=== PATIENT | male | born 1960 | race American Indian/Alaskan Native ===

== ENCOUNTER 2018-12-01 08:09 | Inpatient (IN) | payer OTHER ==
[2018-12-01 09:42] LABS: Basophils # (Auto) 0.1 K/mm3 (0.0-0.1); Basophils % (Auto) 1.4 % (0.0-1.8); Eosinophils # (Auto) 0.1 K/mm3 (0.0-0.4); Eosinophils % (Auto) 1.9 % (0.0-4.3); Hematocrit 36.2 % (35.5-45.6); Hemoglobin 12.2 gm/dl (11.8-15.2); Lymphocytes # (Auto) 1.4 K/mm3 (1.2-5.4); Lymphocytes % (Auto) 28.9 % (13.4-35.0); Mean Corpuscular HGB Conc 34 % (32-34); Mean Corpuscular Volume 88 fl (84-94); Monocytes # (Auto) 0.3 K/mm3 (0.0-0.8); Platelet Count 291 K/mm3 (140-440); Red Blood Count 4.13 M/mm3 (3.65-5.03); Red Cell Distribution Width 15.9 % (13.2-15.2)
[2018-12-01 09:56] LABS: BUN/Creatinine Ratio 19; Blood Urea Nitrogen 23 mg/dL (9-20); Calcium 8.7 mg/dL (8.4-10.2); Hemolysis Index 2
[2018-12-01 10:14] LABS: INR 0.88 (0.87-1.13)
[2018-12-01] MEDS ORDERED: SUBLIMAZE ONE (10:21)
[2018-12-01] MEDS ORDERED: HEPARIN/NS 5000 UNIT/500ML(CATH LAB) 1,500 ML IR ONE (10:22)
[2018-12-01] MEDS ORDERED: ANCEF/STERILE WATER 2 GM/20 ML 2 GM/20 ML SYRINGE IV ONE (10:22)
[2018-12-01] MEDS: NACL 0.9% 1000 ML 1,000 ML IV SCH ×3 (11:05→21:54)
--- NOTE | 2018-12-01 11:06 | Short Stay Summary ---
Short Stay Documentation Date of service: 12/01/18 Narrative H&P: 58 year old male with CLI of the left lower extremity - History Principal diagnosis: Atherosclerosis with gangrene/ulceration H&P: obtained from office - Allergies and Medications Current Medications: Allergies No Known Allergies Allergy (Unverified 12/01/18 08:10) Active Medications Sodium Chloride (Nacl 0.9% 1000 Ml) 1,000 mls @ 42 mls/hr IV DIRECT ENRICO - Physical exam General appearance: no acute distress Lungs: Normal air movement Heart: Regular rate Gastrointestinal: normal Extremities: normal temperature, normal color - Brief post op/procedure progress note Date of procedure: 12/01/18 Pre-op diagnosis: CLI LLE Post-op diagnosis: other (CLI LLE, HIT) Procedure: 1. Ultrasound guided access of the right common femoral artery 2. Angiography of the right lower extremity 3. Selection of the abdominal aorta with aortography 4. Selection of the left external iliac artery, common femoral artery, superficial femoral artery and popliteal artery with angiography 5. Selection of the left anterior tibial artery 6. Ultrasound guided access of the left dorsalis pedis 7. Angioplasty of the left anterior tibial artery with a 2 mm x 220 angioplasty balloon ; 2.5 mm x 120 mm Chocolate balloon ; 3 mm x 120 mm Chocolate balloon ; 2.5 mm x 220 angioplasty balloon 8. Stenting of the left proximal anterior tibial artery with a 2.75 mm x 38 mm RESOLUTE DUS with angioplasty of the left anterior tibial artery with a 2.5 mm x 220 mm angioplasty balloon 9. Placement of a 3 mm spider EPD in the left peroneal artery 10. Atherectomy of the left peroneal artery with a Hawkone S device with angioplasty with a 3 mm x 120 mm Chocolate balloon 11. Angioplasty of the left anterior tibial artery stent with a Expedia 3 mm x 15 mm coronary balloon and 2.5 mm x 220 mm angioplasty balloon 12. Infusion of 6 mg of tPA in the left peroneal artery and anterior tibial a rtery 13. Placement of a 50 cm x 135 cm EKOS thrombolytic device in the left anterior tibial artery Anesthesia: local (w/ conscious sedation) Surgeon: MANUEL KARIMI Estimated blood loss: minimal Condition: stable - Hospital course Hospital course: Admitted to ICU for thrombolytic therapy due to presumed HIT. Thrombolysis was performed overnight with clearance of the thrombus with repeat angioplasty. The patient was then discharged the next day on Eliquis and plavix. Patient will followup in 2 weeks. 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
[2018-12-01] MEDS: XYLOCAINE 2% INFILTRATI ONE ×2 (11:09→11:10)
[2018-12-01] MEDS: VERSED ONE ×11 (11:09→14:01)
[2018-12-01] MEDS: SUBLIMAZE ONE ×10 (11:11→14:01)
[2018-12-01] MEDS: HEPARIN 10,000 UNITS/10 ML ONE ×5 (11:25→14:25)
[2018-12-01] MEDS ORDERED: TRIDIL DRIP 50MG/250ML 0 MG/0 ML BOTTLE ONE (11:32)
[2018-12-01] MEDS ORDERED: TRIDIL DRIP 50MG/250ML 50 MG/250 ML BOTTLE ONE (11:33)
[2018-12-01] MEDS ORDERED: NACL 0.9% 1000 ML 1,000 ML ONE (11:34)
[2018-12-01] MEDS ORDERED: CALAN ONE ×2 (11:34→12:04)
[2018-12-01] MEDS ORDERED: NITROGLYCERIN SYRINGE 6 ML ONE (12:04)
[2018-12-01] MEDS ORDERED: NITROGLYCERIN SYRINGE 3 ML ONE ×3 (12:57→14:33)
[2018-12-01] MEDS ORDERED: NACL 0.9% 100 ML ONE ×2 (15:08→16:19)
[2018-12-01] MEDS ORDERED: NACL 0.9% 500 ML 500 ML ONE (15:08)
[2018-12-01] MEDS ORDERED: CATHFLO ONE ×3 (15:13→15:30)
[2018-12-01] MEDS ORDERED: WATER FOR INJ Sterile (PF) 20 ML ONE (15:13)
[2018-12-01] MEDS: ANGIOMAX IV ONE ×2 (15:15→15:23)
[2018-12-01] MEDS ORDERED: MORPHINE IV PRN ×2 (15:16)
[2018-12-01] MEDS ORDERED: NORCO 5/325 PO PRN (15:16)
[2018-12-01] MEDS ORDERED: ZOFRAN IV PRN (15:16)
[2018-12-01] MEDS ORDERED: D50W (25GM) Syringe IV PRN (15:33)
[2018-12-01] MEDS ORDERED: NACL 0.9% 1000 ML 1,000 ML EKOSCLUMEN SCH (16:00)
[2018-12-01] MEDS ORDERED: NACL 0.9% 1000 ML 1,000 ML IV SCH ×2 (16:00)
[2018-12-01] MEDS ORDERED: NACL 0.9% IV SCH (16:00)
[2018-12-01] MEDS ORDERED: HEPARIN/ 0.45% NACL-25,000 UNIT/500 ML 25,000 UNIT/500 ML BAG SHEATH SCH (16:00)
[2018-12-01] MEDS ORDERED: NACL 0.9% 1000 ML 1,000 ML SHEATH SCH (16:00)
[2018-12-01] MEDS ORDERED: ANGIOMAX IV SCH (16:00)
[2018-12-01] MEDS ORDERED: NACL 0.9% 500 ML IR ONE (16:03)
[2018-12-01] MEDS ORDERED: ANGIOMAX IV ONE (16:19)
--- NOTE | 2018-12-01 16:23 | Operative Report ---
Operative Report Operative Report: EXAM: 1. Ultrasound guided access of the right common femoral artery 2. Angiography of the right lower extremity 3. Selection of the abdominal aorta with aortography 4. Selection of the left external iliac artery, common femoral artery, superficial femoral artery and popliteal artery with angiography 5. Selection of the left anterior tibial artery 6. Ultrasound guided access of the left dorsalis pedis 7. Angioplasty of the left anterior tibial artery with a 2 mm x 220 angioplasty balloon ; 2.5 mm x 120 mm Chocolate balloon ; 3 mm x 120 mm Chocolate balloon ; 2.5 mm x 220 angioplasty balloon 8. Stenting of the left proximal anterior tibial artery with a 2.75 mm x 38 mm RESOLUTE DUS with angioplasty of the left anterior tibial artery with a 2.5 mm x 220 mm angioplasty balloon 9. Placement of a 3 mm spider EPD in the left peroneal artery 10. Atherectomy of the left peroneal artery with a [employer]kone S device with angioplasty with a 3 mm x 120 mm Chocolate balloon 11. Angioplasty of the left anterior tibial artery stent with a Expedia 3 mm x 15 mm coronary balloon and 2.5 mm x 220 mm angioplasty balloon 12. Infusion of 6 mg of tPA in the left peroneal artery and anterior tibial artery 13. Placement of a 50 cm x 135 cm EKOS thrombolytic device in the left anterior tibial artery DATE: 12/01/18 BUFFING AND SUEDING MACHINE OPERATOR: MANUEL KARIMI MD INDICATION: Critical limb ischemia of the left lower extremity with nonhealing ulceration of the foot after open TMA. MEDICATIONS: Please see nursing report for full details. CONTRAST: Please see rn lab report for full details. PROCEDURE: The risks, benefits, and alternatives were discussed with the patient; written informed consent was obtained. The patient's groins were prepped and draped in a sterile fashion. The patient's left foot was prepped and draped in sterile fashion. Under direct ultrasound guidance, the right common femoral artery was evaluated, noted to be patent, and accessed with a 21-gauge micropuncture needle. 0.018 inch wire was passed into the aorta. Needle was exchanged for transitional dilator. Wire was exchanged for 0.035 inch wire. Transitional dilator was exchanged for a 5 Martiniquais sheath. Digital subtraction angiography was performed demonstrating an appropriate puncture, above the bifurcation and below the inferior epigastric artery. The right common femoral artery, superficial femoral artery, proximal profunda femoral artery, and external iliac artery was patent. The abdominal aorta was selected and digital subtraction angiography demonstrated patency of the infrarenal abdominal aorta, bilateral common iliac arteries, and bilateral external iliac arteries. Left external iliac artery was selected and digital subtraction angiography was performed demonstrating patency of the left common femoral artery, profunda femoral artery, and superficial femoral artery. 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 The superficial femoral artery was selected and digital subtraction angiography was performed demonstrating patency throughout the superficial femoral artery. Popliteal artery was selected and digital subtraction angiography was performed showing patency of the proximal and mid popliteal artery. The below the knee popliteal artery had diffuse 40-50% narrowing. Digital subtraction angiography at this level demonstrated that after 5 cm the anterior tibial artery was occluded. It did not reconstitute until the lower calf at which point it was heavily diseased. The tibioperoneal trunk was 30% narrowed. The peroneal artery was the only runoff to the foot and had a 99% narrowing at its proximal portion. Peroneal runoff to the foot provided throw through posterior and anterior communicating arteries, which despite being the only runoff to the foot were still small in size. The posterior tibial artery was occluded after the first few centimeters and did not reconstitute until the ankle at which point there were half millimeter sized vessels. The patient was heparinized. Sheath was exchanged for 6 Martiniquais 90 cm [place] destination position of the left popliteal artery. Left anterior tibial artery was selected and using a variety of catheters and wires, I attempted to cross the occlusion, but entered the subintimal space and was not able to return back into the true lumen. I then decided to perform the Safari technique in order to reconstruct this vessel. Ultrasound was used to identify the left dorsalis pedis artery. The left dorsalis pedis artery is patent. Under direct ultrasound guidance, left dorsalis pedis artery was accessed with a 21-gauge micropuncture needle. 0.018 inch wire was passed into the dorsalis pedis. The inner portion of a transitional dilator was then advanced over the wire. Radial cocktail was administered. Nitroglycerin was administered. Using both the antegrade and retrograde access, I attempted to cross the occlusion which was ultimately successful. The wire was then snared with a 4 Martiniquais goosenecks snare. 2 mm angioplasty balloon was advanced over the wire and used to perform angioplasty to create a lumen. The pedal sheath was then removed and the 2 mm angioplasty balloon was used to balloon the access site. Digital subtraction angiography was performed, and although there is improved flow into the foot, there is still significant irregularity in the proximal portion of the vessel. I suspect there is a dissection at the reentry site in the proximal anterior tibial artery. At first I used a 2.5 mm Chocolate balloon and a 3 mm Chocolate balloon to perform angioplasty of the anterior tibial artery to reconstruct the vessel, but the proximal limitation of flow persisted. I decided to stent the dissection flap with a 2.75 RESOLUTE DUS. After this was performed, 2.5 mm angioplasty balloon was used to perform angioplasty throughout the length of the anterior tibial artery. After this insufflation, there was now excellent flow from the anterior tibial artery. The flow was quite robust. I then decided to treat the peroneal artery. 3 mm spider EPD was deployed in the peroneal artery and atherectomy was performed of the peroneal ostium with a [employer]koL[employer] Mobile S device. This was then post dilated with a 3 mm x 120 mm Chocolate balloon. Digital subtraction angiography was performed demonstrating no residual narrowing of the proximal peroneal artery, but recurrent occlusion of the anterior tibial artery despite previous excellent flow. I then retrieve the embolic protection device and selected the anterior tibial artery. Unfortunately, the catheter slightly kinked the stent in the left anterior tibial artery stent. I had to exchange for a coronary balloon to perform angioplasty of the stent to re-approximate it and then exchanged the balloon for a longer angioplasty balloon. I performed angioplasty of the anterior tibial artery again with a 2.5 mm angioplasty balloon and after this was performed there was now thrombus in the peroneal artery and the anterior tibial artery. Given the intermittent lack of flow in the anterior tibial artery throughout the case, and now thrombus in the peroneal artery and anterior tibial artery I was concerned about heparin-induced thrombocytopenia and hypercoagulable state. I injected 6 mg of tPA in the peroneal artery and anterior tibial artery. I then exchanged by sheath for a 6 Martiniquais 65 cm [place] destination and placed a thrombolytic catheter in the left anterior tibial artery. The site was secured and afterwards, I discussed the situation with the family who understood. Patient was then sent to the ICU for overnight thrombolysis. FINDINGS: Please see procedure note above. IMPRESSION: 1. Successful atherectomy and angioplasty of the left proximal peroneal artery. 2. Successful angioplasty of the left anterior tibial artery was Safari technique. 3. Thrombus of the vessels requiring probable lysis due to concern about heparin-induced thrombocytopenia/hypercoagulable state.
--- NOTE | 2018-12-01 16:30 | Progress Note ---
Assessment and Plan 58 year old male with DM and CLI of the left lower extremity with single vessel diseases runoff with 95% narrowing who is status post revascularization of the left lower extremity with good angiographic results which then became occluded d uring procedure concerning for HIT. Procedure was changed to tPA thrombolysis and patient will be admitted with plan to bring downstairs tomorrow. Discussed extensively with family. Subjective Date of service: 12/01/18 Principal diagnosis: Atherosclerosis with gangrene/ulceration Interval history: 58 year old male with critical limb ischemia of the left lower extremity s/p debridement with nonpalpable pulses and large wound Objective - Constitutional Vitals: Vital Signs - 12hr 12/01/18 09:09 Temperature 98.6 F Pulse Rate 72 Respiratory 16 Rate Blood Pressure 177/82 [Left] O2 Sat by Pulse 95 Oximetry General appearance: Present: no acute distress - EENT Eyes: EOM intact ENT: hearing intact - Respiratory Respiratory effort: normal Extremities: normal temperature, normal color, abnormal (large open ulceration of the left forefoot) - Gastrointestinal General gastrointestinal: Present: soft - Psychiatric Psychiatric: cooperative - Labs CBC & Chem 7: 12/01/18 09:25 12/01/18 09:25 Labs: Abnormal lab results 12/01/18 12/01/18 Range/Units 09:25 09:25 RDW 15.9 H (13.2-15.2) % BUN 23 H (9-20) mg/dL Glucose 159 H (75-100) mg/dL Medications & Allergies - Medications Allergies/Adverse Reactions: Allergies No Known Allergies Allergy (Unverified 12/01/18 08:10) Home Medications: Home Medications Medication Instructions Recorded Confirmed Last Taken Type Insulin Aspart [NovoLOG Flexpen] 100 unit SUB-Q TID 12/01/18 12/01/18 11/30/18 History amLODIPine [Norvasc] 10 mg PO DAILY 12/01/18 12/01/18 12/01/18 History 1 tab hydrALAZINE [Apresoline] 25 mg PO DAILY 12/01/18 12/01/18 12/01/18 History 1 tab Active Medications: Generic Name Dose Route Start Last Admin Trade Name Freq PRN Reason Stop Dose Admin Acetaminophen/Hydrocodone Bitart 2 each 12/01/18 15:16 [place] 5/325 PO Q6H PRN Pain, Moderate (4-6) Amlodipine Besylate 10 mg 12/02/18 10:00 Norvasc PO DAILY [facility] Dextrose 50 ml 12/01/18 15:33 D50w (25gm) Syringe IV PRN PRN Hypoglycemia Hydralazine HCl 25 mg 12/02/18 10:00 Apresoline PO DAILY [facility] Sodium Chloride 1,000 mls @ 42 mls/hr 12/01/18 09:00 12/01/18 11:05 Nacl 0.9% 1000 Ml IV 200 mls DIRECT [facility] Administration Sodium Chloride 1,000 mls @ 30 mls/hr 12/01/18 16:00 Nacl 0.9% 1000 Ml IV DIRECT [facility] Alteplase, Recombinant 20 mg/ 500 mls @ 25 mls/hr 12/01/18 16:00 Sodium Chloride EKOSDLUMEN DIRECT [facility] Sodium Chloride 1,000 mls @ 30 mls/hr 12/01/18 16:00 Nacl 0.9% 1000 Ml IV DIRECT [facility] Sodium Chloride 1,000 mls @ 35 mls/hr 12/01/18 16:00 Nacl 0.9% 1000 Ml EKOSCLUMEN DIRECT [facility] Bivalirudin 250 mg/ Sodium 500 mls @ 77.111 mls/hr 12/01/18 16:00 Chloride IV DIRECT E[facility] 0.25 MG/KG/HR Insulin Human Lispro 0 unit 12/01/18 16:30 Humalog SUB-Q ACHS [facility] Protocol Miscellaneous Medication 100 unit 12/01/18 20:00 Insulin Aspart [Novolog Flexpen] SUB-Q TID [facility] Morphine Sulfate 2 mg 12/01/18 15:16 Morphine IV Q4H PRN Pain, Moderate (4-6) Morphine Sulfate 4 mg 12/01/18 15:16 Morphine IV Q4H PRN Pain , Severe (7-10) Ondansetron HCl 4 mg 12/01/18 15:16 Zofran IV Q8H PRN Nausea And Vomiting
[2018-12-01] MEDS: CATHFLO 20 MG in NACL 0.9% 500 ML 500 ML EKOSDLUMEN SCH ×2 (16:57→21:30)
[2018-12-01] MEDS: HumaLOG SUB-Q SCH (18:10)
--- NOTE | 2018-12-01 19:16 | Consultation ---
History of Present Illness Consult date: 12/01/18 Requesting physician: MANUEL KARIMI Reason for consult: other (Acute Limb Ischemia on EKOS; Possible HIT) History of present illness: PULMONARY/CCM CONSULT NOTE (full dictation # [id number]) Please see dictated notes for full details Medications and Allergies Allergies Allergy/AdvReac Type Severity Reaction Status Date / Time heparin AdvReac Unknown Verified 12/02/18 07:47 Home Medications Medication Instructions Recorded Confirmed Last Taken Type Insulin Aspart [NovoLOG Flexpen] 100 unit SUB-Q TID 12/01/18 12/01/18 11/30/18 History amLODIPine [Norvasc] 10 mg PO DAILY 12/01/18 12/01/18 12/01/18 History 1 tab hydrALAZINE [Apresoline] 25 mg PO DAILY 12/01/18 12/01/18 12/01/18 History 1 tab Active Meds: Active Medications Acetaminophen/Hydrocodone Bitart ([place] 5/325) 2 each PO Q6H PRN PRN Reason: Pain, Moderate (4-6) Amlodipine Besylate (Norvasc) 10 mg PO DAILY [facility] Dextrose (D50w (25gm) Syringe) 50 ml IV PRN PRN PRN Reason: Hypoglycemia Hydralazine HCl (Apresoline) 25 mg PO DAILY [facility] Sodium Chloride (Nacl 0.9% 1000 Ml) 1,000 mls @ 200 mls/hr IV DIRECT ENRICO Last Admin: 12/01/18 16:52 Dose: 42 mls/hr Documented by: Sodium Chloride (Nacl 0.9% 1000 Ml) 1,000 mls @ 30 mls/hr IV DIRECT ENRICO Alteplase, Recombinant 20 mg/ (Sodium Chloride) 500 mls @ 25 mls/hr EKOSDLUMEN DIRECT ENRICO Last Admin: 12/01/18 16:57 Dose: 0 mls Documented by: Sodium Chloride (Nacl 0.9% 1000 Ml) 1,000 mls @ 30 mls/hr IV DIRECT ENRICO Last Admin: 12/01/18 16:57 Dose: 0 mls Documented by: Sodium Chloride (Nacl 0.9% 1000 Ml) 1,000 mls @ 35 mls/hr EKOSCLUMEN DIRECT [facility] Bivalirudin 250 mg/ Sodium (Chloride) 500 mls @ 77.111 mls/hr IV DIRECT ENRICO Last Admin: 12/01/18 16:57 Dose: 180 mls Documented by: Insulin Human Lispro (Humalog) 0 unit SUB-Q ACHS [facility]; Protocol Last Admin: 12/01/18 18:10 Dose: 2 unit Documented by: Insulin Human Lispro (Humalog) 10 unit SUB-Q AC [facility] Morphine Sulfate (Morphine) 2 mg IV Q4H PRN PRN Reason: Pain, Moderate (4-6) Morphine Sulfate (Morphine) 4 mg IV Q4H PRN PRN Reason: Pain , Severe (7-10) Ondansetron HCl (Zofran) 4 mg IV Q8H PRN PRN Reason: Nausea And Vomiting Physical Examination Vital signs: Vital Signs Temp Pulse Resp BP Pulse Ox 98.6 F 72 16 177/82 95 12/01/18 09:09 12/01/18 09:09 12/01/18 09:09 12/01/18 09:09 12/01/18 09:09 Results - Laboratory Findings CBC and BMP: 12/02/18 09:28 12/02/18 04:01 PT/INR, D-dimer PT 12.5 Sec. (12.2-14.9) 12/01/18 09:25 INR 0.88 (0.87-1.13) 12/01/18 09:25 Abnormal lab findings: Abnormal Labs 12/01/18 12/01/18 09:25 09:25 RDW 15.9 H BUN 23 H Glucose 159 H
[2018-12-01 19:46] LABS: Basophils # (Auto) 0.1 K/mm3 (0.0-0.1); Basophils % (Auto) 0.9 % (0.0-1.8); Eosinophils % (Auto) 0.1 % (0.0-4.3); Hematocrit 33.8 % (35.5-45.6); Hemoglobin 11.4 gm/dl (11.8-15.2); Lymphocytes # (Auto) 0.7 K/mm3 (1.2-5.4); Lymphocytes % (Auto) 10.8 % (13.4-35.0); Mean Corpuscular HGB Conc 34 % (32-34); Mean Corpuscular Volume 88 fl (84-94); Monocytes # (Auto) 0.2 K/mm3 (0.0-0.8); Monocytes % (Auto) 2.6 % (0.0-7.3); Platelet Count 269 K/mm3 (140-440); Red Blood Count 3.84 M/mm3 (3.65-5.03); Red Cell Distribution Width 15.6 % (13.2-15.2)
[2018-12-01 19:56] LABS: INR 1.19 (0.87-1.13)
[2018-12-01 19:57] LABS: Fibrinogen 380 mg/dl (211-480); Partial Thromboplastin Time 46.6 Sec. (24.2-36.6)
[2018-12-01 20:00] LABS: BUN/Creatinine Ratio 20; Blood Urea Nitrogen 18 mg/dL (9-20); Calcium 8.5 mg/dL (8.4-10.2); Hemolysis Index 4
[2018-12-01] MEDS ORDERED: INSULIN ASPART 100 UNIT SUB-Q SCH (20:00)
[2018-12-02] MEDS: HumaLOG SUB-Q SCH ×9 (00:54→22:05)
[2018-12-02] MEDS: NACL 0.9% 1000 ML 1,000 ML IV SCH (02:45)
[2018-12-02 02:54] LABS: Basophils # (Auto) 0.1 K/mm3 (0.0-0.1); Basophils % (Auto) 0.9 % (0.0-1.8); Eosinophils % (Auto) 0.8 % (0.0-4.3); Hematocrit 32.5 % (35.5-45.6); Hemoglobin 10.8 gm/dl (11.8-15.2); Lymphocytes # (Auto) 1.3 K/mm3 (1.2-5.4); Lymphocytes % (Auto) 19.4 % (13.4-35.0); Mean Corpuscular HGB Conc 33 % (32-34); Mean Corpuscular Volume 88 fl (84-94); Monocytes # (Auto) 0.4 K/mm3 (0.0-0.8); Monocytes % (Auto) 6.8 % (0.0-7.3); Platelet Count 268 K/mm3 (140-440); Red Blood Count 3.67 M/mm3 (3.65-5.03); Red Cell Distribution Width 15.7 % (13.2-15.2)
[2018-12-02 03:10] LABS: Fibrinogen 364 mg/dl (211-480)
[2018-12-02 05:05] LABS: BUN/Creatinine Ratio 22; Blood Urea Nitrogen 20 mg/dL (9-20); Calcium 8.2 mg/dL (8.4-10.2); Hemolysis Index 7
[2018-12-02] MEDS ORDERED: VERSED ONE (06:30)
[2018-12-02] MEDS ORDERED: SUBLIMAZE ONE (06:30)
[2018-12-02] MEDS ORDERED: XYLOCAINE 2% INFILTRATI ONE (06:35)
[2018-12-02] MEDS ORDERED: NACL 0.9% 1000 ML 1,000 ML ONE (06:35)
[2018-12-02] MEDS ORDERED: NACL 0.9% 500 ML 1,000 ML ONE (06:35)
[2018-12-02] MEDS ORDERED: ANGIOMAX IV ONE (07:11)
[2018-12-02] MEDS ORDERED: NACL 0.9% 50 ML ONE (07:11)
[2018-12-02] MEDS ORDERED: WATER FOR INJ Sterile (PF) 10 ML ONE (07:11)
[2018-12-02] MEDS ORDERED: ANCEF/STERILE WATER 2 GM/20 ML 2 GM/20 ML SYRINGE IV ONE (07:12)
[2018-12-02] MEDS ORDERED: CATHFLO ONE (07:29)
[2018-12-02] MEDS ORDERED: ALUM-MAG HYDROX-SIMETH 200-200-20MG/5ML ONE (07:45)
[2018-12-02] MEDS ORDERED: PLAVIX ONE (07:45)
[2018-12-02] MEDS ORDERED: ELIQUIS ONE (07:48)
--- NOTE | 2018-12-02 08:01 | Post Operative Note ---
Date of procedure: 12/02/18 Pre-op diagnosis: CLI LLE Post-op diagnosis: same Findings: Thrombus resolved after thrombolytic therapy Procedure: 1. EKOS catheter removal of the left superficial femoral artery 2. Angiography of the left lower extremity 3. Aspiration thrombectomy with 6 Fr EXPORT catheter of the left anterior tibial artery 4. Angioplasty of the left anterior tibial artery with a 2.5 mm x 150 mm angioplasty balloon 5. Selection of the peroneal artery 6. Injection of 2 mg of tPA in the distal left peroneal artery 7. Closure of the right common femoral artery with 6 Fr proglide Anesthesia: local (w/ conscious sedation) Surgeon: MANUEL KARIMI Estimated blood loss: minimal Condition: stable Disposition: ICU
--- NOTE | 2018-12-02 08:13 | Event Note ---
Date: 12/02/18 Thrombolysis was successful. Patient tolerated procedure well. Due to concern about HIT with intraoperative thrombosis in prior procedure started on anticoagulation. Started patient on PLAVIX and ELIQUIS. R/B/A discussed with family. FLAT for 8 hrs. Plan for tentative discharge tomorrow.
--- NOTE | 2018-12-02 08:14 | Operative Report ---
Operative Report Operative Report: EXAM: 1. EKOS catheter removal of the left superficial femoral artery 2. Angiography of the left lower extremity 3. Aspiration thrombectomy with 6 Fr EXPORT catheter of the left anterior tibial artery 4. Angioplasty of the left anterior tibial artery with a 2.5 mm x 150 mm angioplasty balloon 5. Selection of the peroneal artery 6. Injection of 2 mg of tPA in the distal left peroneal artery 7. Closure of the right common femoral artery with 6 Fr proglide DATE: 12/02/18 COMMUNITY SERVICE OFFICER COORDINATOR: MANUEL KARIMI MD INDICATION: Overnight thrombo-lysis for intraprocedural thrombus during critical limb ischemia procedure to salvage the left lower extremity. MEDICATIONS: Please see nursing report for full details. CONTRAST: Please see process laboratory specialist report for full details. PROCEDURE: The risks, benefits, and alternatives were discussed with the patient; written informed consent was obtained. The patient was brought to the angiography suite and his thrombolysis catheter was prepped and draped in a sterile fashion. Fluoroscopy was used to evaluate the positioning of the thrombolysis catheter which was unchanged in the left anterior tibial artery. The wire was removed and digital subtraction angiography was performed through the thrombolysis catheter demonstrating flow to the dorsalis pedis was some irregularity of the distal anterior tibial artery with some 50-90% focal narrowings. Over a 0.014 inch wire, the thrombolysis catheter was retracted and digital subtraction angiography was performed demonstrating patency of the midportion of the vessel with some 30-40% narrowing of the proximal portion of the vessel. The tibioperoneal trunk was patent. The peroneal artery thrombus had completely resolved. There is 0% residual narrowing of the proximal peroneal artery. The mid peroneal artery was patent. The distal peroneal artery was patent except for a focal area which had sluggish flow, possibly due to competing flow. The posterior tibial artery was unchanged and continue to be occluded. Angiomax was initiated at this time. 6 Romanian aspiration thrombectomy catheter is advanced over the wire and used to perform aspiration thrombectomy throughout the anterior tibial artery. AngioJet could not be used to the length limitations. After this was completed, 2.5 mm angioplasty balloon was used to perform angioplasty of the distal anterior tibial artery and the proximal anterior tibial artery. Digital subtraction angiography was performed demonstrating 10-20% residual narrowing at these area s. There was prompt flow through the reconstructed anterior tibial artery. Afterwards, the peroneal artery was selected and the distal most portion of the peroneal artery with the sluggish flow was selected and digital subtraction angiography was performed demonstrating no clear cause for the sluggish flow which was likely due to competing flow. Incase there was microthrombus, 2 mg of TPA was injected into this vessel. At this point, all wires, catheters, and sheaths were retracted to the right external iliac artery and the site was closed with a 6 Romanian Pro-glide. The patient was initiated on Plavix and Eliquis. Pressure dressing applied to the groin. No immediate postprocedure complication. FINDINGS: Please see procedure note above. IMPRESSION: 1. Successful angioplasty of the left anterior tibial artery. 2. Successful selection of the left anterior tibial artery and peroneal artery. 3. Successful aspiration thrombectomy of the left anterior tibial artery. 4. Successful thrombolytic catheter removal.
[2018-12-02] MEDS: NORVASC PO SCH (09:09)
[2018-12-02] MEDS: APRESOLINE PO SCH (09:09)
[2018-12-02 09:54] LABS: Basophils # (Auto) 0.1 K/mm3 (0.0-0.1); Basophils % (Auto) 0.9 % (0.0-1.8); Eosinophils % (Auto) 0.3 % (0.0-4.3); Hematocrit 35.4 % (35.5-45.6); Hemoglobin 11.8 gm/dl (11.8-15.2); Lymphocytes # (Auto) 0.8 K/mm3 (1.2-5.4); Lymphocytes % (Auto) 13.1 % (13.4-35.0); Mean Corpuscular HGB Conc 33 % (32-34); Mean Corpuscular Volume 89 fl (84-94); Monocytes # (Auto) 0.3 K/mm3 (0.0-0.8); Monocytes % (Auto) 4.8 % (0.0-7.3); Platelet Count 258 K/mm3 (140-440); Red Blood Count 3.99 M/mm3 (3.65-5.03); Red Cell Distribution Width 15.9 % (13.2-15.2)
--- NOTE | 2018-12-02 10:35 | Progress Note ---
<LIZETTE KEENE A - Last Filed: 12/05/18 13:22> Objective CBC and BMP: 12/02/18 09:28 12/03/18 05:29 ABG, PT/INR, D-dimer: PT/INR, D-dimer PT 15.9 Sec. (12.2-14.9) H 12/01/18 19:18 INR 1.19 (0.87-1.13) H 12/01/18 19:18 Abnormal lab findings: Abnormal Labs 12/01/18 12/01/18 12/01/18 09:25 09:25 17:02 Hgb Hct RDW 15.9 H Lymph % (Auto) Lymph # Seg Neutrophils % PT INR APTT Heparin Anti-Xa Level Carbon Dioxide BUN 23 H Glucose 159 H POC Glucose 168 H Calcium 12/01/18 12/01/18 12/01/18 19:18 19:18 19:18 Hgb Hct RDW Lymph % (Auto) Lymph # Seg Neutrophils % PT 15.9 H INR 1.19 H APTT 46.6 H Heparin Anti-Xa Level < 0.10 L Carbon Dioxide BUN Glucose 146 H POC Glucose Calcium 12/01/18 12/01/18 12/02/18 19:26 22:02 00:51 Hgb 11.4 L Hct 33.8 L RDW 15.6 H Lymph % (Auto) 10.8 L Lymph # 0.7 L Seg Neutrophils % 85.6 H PT INR APTT Heparin Anti-Xa Level Carbon Dioxide BUN Glucose POC Glucose 119 H 132 H Calcium 12/02/18 12/02/18 12/02/18 02:14 02:14 04:01 Hgb 10.8 L Hct 32.5 L RDW 15.7 H Lymph % (Auto) Lymph # Seg Neutrophils % 72.1 H PT INR APTT Heparin Anti-Xa Level < 0.10 L Carbon Dioxide 20 L BUN Glucose 129 H POC Glucose Calcium 8.2 L 12/02/18 12/02/18 12/02/18 09:00 09:28 09:28 Hgb Hct 35.4 L RDW 15.9 H Lymph % (Auto) 13.1 L Lymph # 0.8 L Seg Neutrophils % 80.9 H PT INR APTT Heparin Anti-Xa Level 0.22 L Carbon Dioxide BUN Glucose POC Glucose 174 H Calcium 12/02/18 12/02/18 12/02/18 12:14 19:16 22:00 Hgb Hct RDW Lymph % (Auto) Lymph # Seg Neutrophils % PT INR APTT Heparin Anti-Xa Level Carbon Dioxide BUN Glucose POC Glucose 130 H 153 H 132 H Calcium 12/03/18 12/03/18 12/03/18 05:29 08:39 12:04 Hgb Hct RDW Lymph % (Auto) Lymph # Seg Neutrophils % PT INR APTT Heparin Anti-Xa Level Carbon Dioxide BUN Glucose 156 H POC Glucose 170 H 129 H Calcium <CYNTHIA COLEMANINDYCARLOS Samy - Last Filed: 12/09/18 11:50> Assessment and Plan Severe PVD with acute limb ischemia s/p status post left lower extremity revascularization, EKOS and angioplasty. DM HIT Morbid Obesity, PASHA HTN PUD - continue and complete EkOS treatment per Vascular team - prn H&H - encouraged compliance with BIPAP while asleep at night - Continue supplemental oxygen as needed to keep O2 sat's > 90% - Weight loss and lifestyle modifications counselling - Continue with glycemic control - Encouraged to remain compliant with nocturnal BIPAP/CPAP .... re-evaluate in am & prn Subjective Date of service: 12/02/18 Principal diagnosis: Severe PVD; Acute limb ischemia; DM II; HIT; Morbid Obesity; PASHA Interval history: Patient is seen today for: Severe PVD with acute limb ischemia; s/p status post left lower extremity revascularization, EKOS and angioplasty; DM II; HIT; Morbid Obesity; PASHA Seen and examined at bedside; 24-hour events reviewed; nursing and respiratory care staff consulted; no adverse overnight events reported to me; continues to be non compliant with BIPAP; no gross bleeding; remains on EkOS catheter directed thrombolytic therapy; denies acute chest pains or palpitations Objective Vital Signs - 12hr 12/01/18 12/01/18 12/02/18 23:00 23:25 00:00 Temperature 98.2 F 97.9 F Pulse Rate 82 86 Respiratory 18 18 Rate Blood Pressure 137/64 157/68 O2 Sat by Pulse 98 98 Oximetry 12/02/18 12/02/18 12/02/18 02:00 03:00 03:24 Temperature 97.8 F 98.4 F Pulse Rate Respiratory 16 18 Rate Blood Pressure 153/69 138/55 O2 Sat by Pulse 95 98 Oximetry 12/02/18 12/02/18 12/02/18 04:00 05:00 06:00 Temperature 98.2 F Pulse Rate 88 89 Respiratory 18 18 16 Rate Blood Pressure 142/57 163/58 149/56 O2 Sat by Pulse 98 96 96 Oximetry 12/02/18 09:09 Temperature Pulse Rate 80 Respiratory Rate Blood Pressure 181/55 O2 Sat by Pulse Oximetry Constitutional: appears uncomfortable, other (Morbidly Obese middle aged AAM, normocephalic) Eyes: non-icteric ENT: oropharynx moist, other (Mallampati 4) Neck: supple, no lymphadenopathy, no JVD, other (large neck circumference) Effort: mildly labored Ascultation: Bilateral: clear, diminished breath sounds Percussion: Bilateral: not dull Cardiovascular: regular rate and rhythm Gastrointestinal: normoactive bowel sounds, soft, non-tender, non-distended Neurologic: normal mental status, non-focal exam, pupils equal and round, CN II- XII normal, motor strength normal and Psychiatric: mood appropriate, affect normal CBC and BMP: 12/02/18 09:28 12/03/18 05:29 ABG, PT/INR, D-dimer: PT/INR, D-dimer PT 15.9 Sec. (12.2-14.9) H 12/01/18 19:18 INR 1.19 (0.87-1.13) H 12/01/18 19:18 Abnormal lab findings: Abnormal Labs 12/01/18 12/01/18 12/01/18 09:25 09:25 17:02 Hgb Hct RDW 15.9 H Lymph % (Auto) Lymph # Seg Neutrophils % PT INR APTT Heparin Anti-Xa Level Carbon Dioxide BUN 23 H Glucose 159 H POC Glucose 168 H Calcium 12/01/18 12/01/18 12/01/18 19:18 19:18 19:18 Hgb Hct RDW Lymph % (Auto) Lymph # Seg Neutrophils % PT 15.9 H INR 1.19 H APTT 46.6 H Heparin Anti-Xa Level < 0.10 L Carbon Dioxide BUN Glucose 146 H POC Glucose Calcium 12/01/18 12/01/18 12/02/18 19:26 22:02 00:51 Hgb 11.4 L Hct 33.8 L RDW 15.6 H Lymph % (Auto) 10.8 L Lymph # 0.7 L Seg Neutrophils % 85.6 H PT INR APTT Heparin Anti-Xa Level Carbon Dioxide BUN Glucose POC Glucose 119 H 132 H Calcium 12/02/18 12/02/18 12/02/18 02:14 02:14 04:01 Hgb 10.8 L Hct 32.5 L RDW 15.7 H Lymph % (Auto) Lymph # Seg Neutrophils % 72.1 H PT INR APTT Heparin Anti-Xa Level < 0.10 L Carbon Dioxide 20 L BUN Glucose 129 H POC Glucose Calcium 8.2 L 12/02/18 12/02/18 12/02/18 09:00 09:28 09:28 Hgb Hct 35.4 L RDW 15.9 H Lymph % (Auto) 13.1 L Lymph # 0.8 L Seg Neutrophils % 80.9 H PT INR APTT Heparin Anti-Xa Level 0.22 L Carbon Dioxide BUN Glucose POC Glucose 174 H Calcium Allied health notes reviewed: nursing
[2018-12-02] MEDS ORDERED: ELIQUIS PO SCH (11:00)
--- NOTE | 2018-12-02 11:18 | Consultation ---
History of Present Illness - Reason for Consult Consult date: 12/02/18 Diabetes mellitus Requesting physician: MANUEL KARIMI - History of Present Illness Patient is a 58 year old male with Diabetes mellitus, left partial foot amputation, seveere PVD, PASHA, on home cpapa and ex tobacco use. Who presents to the hospital with left lower ext and critical limb ischemia reqiring revascularization and unfortunately became occluded during the procedure and per vascular was concerning for HIT. Pateint then underwent TPA thrombolysis and we are consulted for management of DM, HTN and morbid obesity. During the evaluation in the ICU the patient denies any chest pain nausea vomiting or diarrhea. Denies any complaints or breast. Reports that his diabetes is well managed. He Is Working on His Weight Loss. Past History Past Medical History: COPD, diabetes, hypertension, PVD Past Surgical History: Other (foot surgery) Social history: denies: no significant social history, single Family history: no significant family history Medications and Allergies Allergies Allergy/AdvReac Type Severity Reaction Status Date / Time heparin AdvReac Unknown Verified 12/02/18 07:47 Home Medications Medication Instructions Recorded Confirmed Last Taken Type Insulin Aspart [NovoLOG Flexpen] 100 unit SUB-Q TID 12/01/18 12/01/18 11/30/18 History amLODIPine [Norvasc] 10 mg PO DAILY 12/01/18 12/01/18 12/01/18 History 1 tab hydrALAZINE [Apresoline TAB] 25 mg PO DAILY 12/01/18 12/01/18 12/01/18 History 1 tab Apixaban [Eliquis] 5 mg PO BID #60 tablet 12/03/18 Unknown Rx Clopidogrel [Plavix] 75 mg PO QDAY #90 tablet 12/03/18 Unknown Rx Active Meds: Active Medications Acetaminophen/Hydrocodone Bitart ([place] 5/325) 2 each PO Q6H PRN PRN Reason: Pain, Moderate (4-6) Amlodipine Besylate (Norvasc) 10 mg PO DAILY [facility] Last Admin: 12/02/18 09:09 Dose: 10 mg Documented by: Apixaban (Eliquis) 5 mg PO BID [facility]; Protocol Clopidogrel Bisulfate (Plavix) 75 mg PO QDAY [facility] Dextrose (D50w (25gm) Syringe) 50 ml IV PRN PRN PRN Reason: Hypoglycemia Famotidine (Pepcid) 20 mg PO BID [facility] Hydralazine HCl (Apresoline) 25 mg PO DAILY [facility] Last Admin: 12/02/18 09:09 Dose: 25 mg Documented by: Insulin Human Lispro (Humalog) 0 unit SUB-Q ACHS [facility]; Protocol Last Admin: 12/02/18 09:10 Dose: 2 unit Documented by: Insulin Human Lispro (Humalog) 10 unit SUB-Q AC [facility] Last Admin: 12/02/18 09:10 Dose: 10 unit Documented by: Morphine Sulfate (Morphine) 2 mg IV Q4H PRN PRN Reason: Pain, Moderate (4-6) Morphine Sulfate (Morphine) 4 mg IV Q4H PRN PRN Reason: Pain , Severe (7-10) Ondansetron HCl (Zofran) 4 mg IV Q8H PRN PRN Reason: Nausea And Vomiting Exam - Constitutional Vitals: Temp Pulse Resp BP Pulse Ox 98.2 F 80 16 181/55 96 12/02/18 04:00 12/02/18 09:09 12/02/18 06:00 12/02/18 09:09 12/02/18 06:00 General appearance: Present: no acute distress, well-nourished, obese - EENT Eyes: Present: PERRL, EOM intact ENT: clear oral mucosa, dentition normal - Neck Neck: Present: supple, normal ROM - Respiratory Respiratory effort: normal Respiratory: bilateral: CTA - Cardiovascular Rhythm: regular Heart Sounds: Present: S1 & S2, systolic murmur - Extremities Extremities: abnormal Extremity abnormal: edema (+1), pulses diminished Peripheral Pulses: within normal limits - Abdominal General gastrointestinal: Present: soft, non-tender, non-distended, normal bowel sounds - Integumentary Integumentary: Present: erythema, decreased turgor - Musculoskeletal Musculoskeletal: strength equal bilaterally - Psychiatric Psychiatric: appropriate mood/affect - Neurologic Neurologic: CNII-XII intact, moves all extremities - Allied Health Allied health notes reviewed: nursing Results - Labs CBC & Chem 7: 12/02/18 09:28 12/03/18 05:29 Labs: Abnormal lab results 12/01/18 12/01/18 12/01/18 Range/Units 17:02 19:18 19:18 Hgb (11.8-15.2) gm/dl Hct (35.5-45.6) % RDW (13.2-15.2) % Lymph % (Auto) (13.4-35.0) % Lymph # (1.2-5.4) K/mm3 Seg Neutrophils % (40.0-70.0) % PT 15.9 H (12.2-14.9) Sec. INR 1.19 H (0.87-1.13) APTT 46.6 H (24.2-36.6) Sec. Heparin Anti-Xa Level (0.3-0.7) U.I./ml Carbon Dioxide (22-30) mmol/L Glucose 146 H (75-100) mg/dL POC Glucose 168 H (70-105) Calcium (8.4-10.2) mg/dL 12/01/18 12/01/18 12/01/18 Range/Units 19:18 19:26 22:02 Hgb 11.4 L (11.8-15.2) gm/dl Hct 33.8 L (35.5-45.6) % RDW 15.6 H (13.2-15.2) % Lymph % (Auto) 10.8 L (13.4-35.0) % Lymph # 0.7 L (1.2-5.4) K/mm3 Seg Neutrophils % 85.6 H (40.0-70.0) % PT (12.2-14.9) Sec. INR (0.87-1.13) APTT (24.2-36.6) Sec. Heparin Anti-Xa Level < 0.10 L (0.3-0.7) U.I./ml Carbon Dioxide (22-30) mmol/L Glucose (75-100) mg/dL POC Glucose 119 H (70-105) Calcium (8.4-10.2) mg/dL 12/02/18 12/02/18 12/02/18 Range/Units 00:51 02:14 02:14 Hgb 10.8 L (11.8-15.2) gm/dl Hct 32.5 L (35.5-45.6) % RDW 15.7 H (13.2-15.2) % Lymph % (Auto) (13.4-35.0) % Lymph # (1.2-5.4) K/mm3 Seg Neutrophils % 72.1 H (40.0-70.0) % PT (12.2-14.9) Sec. INR (0.87-1.13) APTT (24.2-36.6) Sec. Heparin Anti-Xa Level < 0.10 L (0.3-0.7) U.I./ml Carbon Dioxide (22-30) mmol/L Glucose (75-100) mg/dL POC Glucose 132 H (70-105) Calcium (8.4-10.2) mg/dL 12/02/18 12/02/18 12/02/18 Range/Units 04:01 09:00 09:28 Hgb (11.8-15.2) gm/dl Hct 35.4 L (35.5-45.6) % RDW 15.9 H (13.2-15.2) % Lymph % (Auto) 13.1 L (13.4-35.0) % Lymph # 0.8 L (1.2-5.4) K/mm3 Seg Neutrophils % 80.9 H (40.0-70.0) % PT (12.2-14.9) Sec. INR (0.87-1.13) APTT (24.2-36.6) Sec. Heparin Anti-Xa Level (0.3-0.7) U.I./ml Carbon Dioxide 20 L (22-30) mmol/L Glucose 129 H (75-100) mg/dL POC Glucose 174 H (70-105) Calcium 8.2 L (8.4-10.2) mg/dL 12/02/18 Range/Units 09:28 Hgb (11.8-15.2) gm/dl Hct (35.5-45.6) % RDW (13.2-15.2) % Lymph % (Auto) (13.4-35.0) % Lymph # (1.2-5.4) K/mm3 Seg Neutrophils % (40.0-70.0) % PT (12.2-14.9) Sec. INR (0.87-1.13) APTT (24.2-36.6) Sec. Heparin Anti-Xa Level 0.22 L (0.3-0.7) U.I./ml Carbon Dioxide (22-30) mmol/L Glucose (75-100) mg/dL POC Glucose (70-105) Calcium (8.4-10.2) mg/dL Assessment and Plan Patient is a 58 year old male with Diabetes mellitus, left partial foot amputation, seveere PVD, PASHA, on home cpapa and ex tobacco use. Who presents to the hospital with left lower ext and critical limb ischemia reqiring revascularization and unfortunately became occluded during the procedure and per vascular was concerning for HIT. Pateint then underwent TPA thrombolysis and we are consulted for management of DM, HTN and morbid obesity. During the evalu ation in the ICU the patient denies any chest pain nausea vomiting or diarrhea. Denies any complaints or breast. Reports that his diabetes is well managed. He Is Working on His Weight Loss. Severe PVD with acute limb ischemia DM HIT Morbid Obesity PASHA HTN PUD Plan Patient seen and examined resting comfortable Continue current EKOS Management BIPAP at night Continue supplemental oxygen Weight loss counselling Continue insulin and accu checks DVT/GI PROPPHY The high probability of a clinically significant, sudden or life threatening deterioration of the [vascular] system(s) required my full and direct attention, intervention and personal management. The aggregate critical care time was [45] minutes. This time is in addition to time spent performing reported procedures but includes the following: [x] Data Review and interpretation [x] Patient assessment and monitoring of vital signs [x] Documentation [x] Medication orders and management
[2018-12-02] MEDS: PEPCID PO SCH ×2 (13:53→22:51)
--- NOTE | 2018-12-02 15:22 | Progress Note ---
Assessment and Plan Patient doing well status post revascularization procedure. Okay to transfer out of the ICU from a vascular standpoint. Subjective Date of service: 12/02/18 Principal diagnosis: Atherosclerosis with gangrene/ulceration Interval history: Patient status post left lower extremity revascularization, EKOS and angioplasty. His left lower leg is now warm and well-perfused. No complaints of pain. No significant swelling. The calf is soft and nontender. Objective - Constitutional Vitals: Vital Signs - 12hr 12/02/18 12/02/18 12/02/18 03:20 03:24 03:30 Temperature 98.4 F Pulse Rate 77 85 Respiratory 16 18 Rate Blood Pressure 138/55 138/55 O2 Sat by Pulse 97 96 Oximetry 12/02/18 12/02/18 12/02/18 03:40 03:50 04:00 Temperature 98.2 F Pulse Rate 84 83 81 Respiratory 19 16 17 Rate Blood Pressure 138/55 138/55 142/57 O2 Sat by Pulse 96 97 96 Oximetry 12/02/18 12/02/18 12/02/18 04:10 04:20 04:30 Temperature Pulse Rate 81 78 82 Respiratory 17 16 17 Rate Blood Pressure 142/57 142/57 142/57 O2 Sat by Pulse 96 96 95 Oximetry 12/02/18 12/02/18 12/02/18 04:40 04:50 05:00 Temperature Pulse Rate 82 81 81 Respiratory 20 13 12 Rate Blood Pressure 142/57 142/57 163/58 O2 Sat by Pulse 91 98 98 Oximetry 12/02/18 12/02/18 12/02/18 05:10 05:20 05:30 Temperature Pulse Rate 80 81 80 Respiratory 17 18 18 Rate Blood Pressure 163/58 163/58 163/58 O2 Sat by Pulse 96 95 95 Oximetry 12/02/18 12/02/18 12/02/18 05:40 05:50 06:00 Temperature Pulse Rate 78 78 80 Respiratory 19 18 17 Rate Blood Pressure 163/58 163/58 163/58 O2 Sat by Pulse 96 95 96 Oximetry 12/02/18 12/02/18 12/02/18 08:24 08:30 08:40 Temperature Pulse Rate 74 77 Respiratory 14 13 Rate Blood Pressure 172/64 172/64 172/64 O2 Sat by Pulse 96 95 97 Oximetry 12/02/18 12/02/18 12/02/18 08:50 09:00 09:09 Temperature 97.8 F Pulse Rate 83 80 80 Respiratory 9 L 14 Rate Blood Pressure 172/64 181/55 181/55 O2 Sat by Pulse 97 98 Oximetry 12/02/18 12/02/18 12/02/18 09:10 09:20 09:30 Temperature Pulse Rate 79 76 78 Respiratory 15 16 19 Rate Blood Pressure 181/55 181/55 181/55 O2 Sat by Pulse 98 97 96 Oximetry 12/02/18 12/02/18 12/02/18 09:40 09:50 10:00 Temperature Pulse Rate 79 76 78 Respiratory 12 17 17 Rate Blood Pressure 181/55 181/55 166/75 O2 Sat by Pulse 98 97 98 Oximetry 12/02/18 12/02/18 12/02/18 10:10 10:20 10:30 Temperature Pulse Rate 79 77 84 Respiratory 15 18 15 Rate Blood Pressure 181/55 181/55 181/55 O2 Sat by Pulse 97 97 98 Oximetry 12/02/18 12/02/18 12/02/18 10:40 10:50 11:00 Temperature Pulse Rate 85 79 79 Respiratory 14 15 19 Rate Blood Pressure 181/55 181/55 166/79 O2 Sat by Pulse 97 98 97 Oximetry 12/02/18 12/02/18 12/02/18 11:10 11:20 11:30 Temperature Pulse Rate 78 78 75 Respiratory 13 16 20 Rate Blood Pressure 166/79 166/79 166/79 O2 Sat by Pulse 98 98 97 Oximetry 12/02/18 12/02/18 12/02/18 11:40 11:50 12:00 Temperature 98.8 F Pulse Rate 76 75 76 Respiratory 14 13 14 Rate Blood Pressure 166/79 166/79 143/67 O2 Sat by Pulse 99 96 99 Oximetry 12/02/18 12/02/18 12/02/18 12:10 12:20 12:30 Temperature Pulse Rate 77 77 79 Respiratory 19 19 14 Rate Blood Pressure 143/67 143/67 143/67 O2 Sat by Pulse 98 98 98 Oximetry 12/02/18 12/02/18 12:40 12:50 Temperature Pulse Rate 79 80 Respiratory 16 18 Rate Blood Pressure 143/67 143/67 O2 Sat by Pulse 98 99 Oximetry General appearance: Present: no acute distress - EENT Eyes: EOM intact ENT: hearing intact - Neck Neck: supple, normal ROM - Respiratory Respiratory effort: normal - Cardiovascular Rhythm: regular Extremities: abnormal Extremity abnormal: edema - Gastrointestinal General gastrointestinal: Present: deferred Rectal Exam: deferred - Genitourinary Male genitourinary: deferred - Psychiatric Psychiatric: cooperative - Labs CBC & Chem 7: 12/02/18 09:28 12/02/18 04:01 Labs: Abnormal lab results 12/01/18 12/01/18 12/01/18 Range/Units 17:02 19:18 19:18 Hgb (11.8-15.2) gm/dl Hct (35.5-45.6) % RDW (13.2-15.2) % Lymph % (Auto) (13.4-35.0) % Lymph # (1.2-5.4) K/mm3 Seg Neutrophils % (40.0-70.0) % PT 15.9 H (12.2-14.9) Sec. INR 1.19 H (0.87-1.13) APTT 46.6 H (24.2-36.6) Sec. Heparin Anti-Xa Level (0.3-0.7) U.I./ml Carbon Dioxide (22-30) mmol/L Glucose 146 H (75-100) mg/dL POC Glucose 168 H (70-105) Calcium (8.4-10.2) mg/dL 12/01/18 12/01/18 12/01/18 Range/Units 19:18 19:26 22:02 Hgb 11.4 L (11.8-15.2) gm/dl Hct 33.8 L (35.5-45.6) % RDW 15.6 H (13.2-15.2) % Lymph % (Auto) 10.8 L (13.4-35.0) % Lymph # 0.7 L (1.2-5.4) K/mm3 Seg Neutrophils % 85.6 H (40.0-70.0) % PT (12.2-14.9) Sec. INR (0.87-1.13) APTT (24.2-36.6) Sec. Heparin Anti-Xa Level < 0.10 L (0.3-0.7) U.I./ml Carbon Dioxide (22-30) mmol/L Glucose (75-100) mg/dL POC Glucose 119 H (70-105) Calcium (8.4-10.2) mg/dL 12/02/18 12/02/18 12/02/18 Range/Units 00:51 02:14 02:14 Hgb 10.8 L (11.8-15.2) gm/dl Hct 32.5 L (35.5-45.6) % RDW 15.7 H (13.2-15.2) % Lymph % (Auto) (13.4-35.0) % Lymph # (1.2-5.4) K/mm3 Seg Neutrophils % 72.1 H (40.0-70.0) % PT (12.2-14.9) Sec. INR (0.87-1.13) APTT (24.2-36.6) Sec. Heparin Anti-Xa Level < 0.10 L (0.3-0.7) U.I./ml Carbon Dioxide (22-30) mmol/L Glucose (75-100) mg/dL POC Glucose 132 H (70-105) Calcium (8.4-10.2) mg/dL 12/02/18 12/02/18 12/02/18 Range/Units 04:01 09:00 09:28 Hgb (11.8-15.2) gm/dl Hct 35.4 L (35.5-45.6) % RDW 15.9 H (13.2-15.2) % Lymph % (Auto) 13.1 L (13.4-35.0) % Lymph # 0.8 L (1.2-5.4) K/mm3 Seg Neutrophils % 80.9 H (40.0-70.0) % PT (12.2-14.9) Sec. INR (0.87-1.13) APTT (24.2-36.6) Sec. Heparin Anti-Xa Level (0.3-0.7) U.I./ml Carbon Dioxide 20 L (22-30) mmol/L Glucose 129 H (75-100) mg/dL POC Glucose 174 H (70-105) Calcium 8.2 L (8.4-10.2) mg/dL 12/02/18 12/02/18 Range/Units 09:28 12:14 Hgb (11.8-15.2) gm/dl Hct (35.5-45.6) % RDW (13.2-15.2) % Lymph % (Auto) (13.4-35.0) % Lymph # (1.2-5.4) K/mm3 Seg Neutrophils % (40.0-70.0) % PT (12.2-14.9) Sec. INR (0.87-1.13) APTT (24.2-36.6) Sec. Heparin Anti-Xa Level 0.22 L (0.3-0.7) U.I./ml Carbon Dioxide (22-30) mmol/L Glucose (75-100) mg/dL POC Glucose 130 H (70-105) Calcium (8.4-10.2) mg/dL Medications & Allergies - Medications Allergies/Adverse Reactions: Allergies heparin Adverse Reaction (Verified 12/02/18 07:47) Unknown Thrombosis (HIIT) Home Medications: Home Medications Medication Instructions Recorded Confirmed Last Taken Type Insulin Aspart [NovoLOG Flexpen] 100 unit SUB-Q TID 12/01/18 12/01/18 11/30/18 History amLODIPine [Norvasc] 10 mg PO DAILY 12/01/18 12/01/18 12/01/18 History 1 tab hydrALAZINE [Apresoline] 25 mg PO DAILY 12/01/18 12/01/18 12/01/18 History 1 tab Active Medications: Generic Name Dose Route Start Last Admin Trade Name Freq PRN Reason Stop Dose Admin Acetaminophen/Hydrocodone Bitart 2 each 12/01/18 15:16 [place] 5/325 PO Q6H PRN Pain, Moderate (4-6) Amlodipine Besylate 10 mg 12/02/18 10:00 12/02/18 09:09 Norvasc PO 10 mg DAILY [facility] Administration Apixaban 5 mg 12/02/18 22:00 Eliquis PO BID [facility] Protocol Clopidogrel Bisulfate 75 mg 12/03/18 11:00 Plavix PO QDAY [facility] Dextrose 50 ml 12/01/18 15:33 D50w (25gm) Syringe IV PRN PRN Hypoglycemia Famotidine 20 mg 12/02/18 11:00 12/02/18 13:53 Pepcid PO Not Given BID [facility] Hydralazine HCl 25 mg 12/02/18 10:00 12/02/18 09:09 Apresoline PO 25 mg DAILY [facility] Administration Insulin Human Lispro 0 unit 12/01/18 16:30 12/02/18 12:00 Humalog SUB-Q Not Given ACHS [facility] Protocol Insulin Human Lispro 10 unit 12/02/18 07:30 12/02/18 09:10 Humalog SUB-Q 10 unit AC [facility] Administration Morphine Sulfate 2 mg 12/01/18 15:16 Morphine IV Q4H PRN Pain, Moderate (4-6) Morphine Sulfate 4 mg 12/01/18 15:16 Morphine IV Q4H PRN Pain , Severe (7-10) Ondansetron HCl 4 mg 12/01/18 15:16 Zofran IV Q8H PRN Nausea And Vomiting
--- NOTE | 2018-12-02 18:30 | Event Note ---
Date: 12/02/18 [id number]
--- NOTE | 2018-12-02 22:24 | Consultation ---
PULMONARY CRITICAL CONSULTATION CONSULTING PHYSICIAN: Dr. Juares. REASON FOR CONSULTATION: Need for ICU admission for EKOS catheter-directed thrombolytic therapy, post-acute limb ischemia. CHIEF COMPLAINT AND HISTORY OF PRESENT ILLNESS: As follows: The patient is a 58-year-old -[place] male, morbidly obese, past medical history otherwise significant for a diagnosis of peripheral vascular disease, who according to the records, was brought in for an elective operative intervention secondary to the left lower extremity peripheral vascular disease, atherosclerosis with gangrene/ulceration of that lower extremity. He did undergo a procedure; however, upon exposure to heparin, he reportedly started having some trouble with clot formation. It was felt that he likely has a diagnosis of heparin-induced thrombocytopenia. The anticoagulation medium was changed to Angiomax and he was brought into the Intensive Care Unit for continued administration of thrombolytic via EKOS system. We are asked to assist with management. When I stopped by to see him, he did admit to me he has a history of obstructive sleep apnea and does have a CPAP or BiPAP machine at home. He denied any acute chest pains. He denied palpitations. He denied nausea, vomiting, or overt aspiration. With regards to tobacco use/abuse, he has a remote tobacco smoking history, states that he quit smoking 34 years ago. This really is as much of the history of presentation as I have. PAST MEDICAL HISTORY: Morbid obesity, diabetes, hypertension, and history of I believe peptic ulcer disease. PAST SURGICAL HISTORY: Unknown. MEDICATIONS: He was on at the time I stopped by to see him, according to the medication administration record included the following: Percocet 5/325 two tablets p.o. q. 6 hours p.r.n. moderate pain, Norvasc 10 mg p.o. daily, hydralazine 25 mg p.o. daily, insulin via sliding scale. Morphine 4 mg IV q. 4 hours p.r.n. severe pain, and Zofran 4 mg IV q. 8 hours p.r.n. nausea and vomiting. ALLERGIES: HEPARIN based on the presumptive diagnosis of heparin-induced thrombocytopenia. DIET: Morbidly obese. Denies significant weight loss or gain in the preceding few weeks to months. FAMILY AND SOCIAL HISTORY: Lives in the community. Denies current alcohol, tobacco, or illicit drug use or abuse. Family history is otherwise unknown. REVIEW OF SYSTEMS: No loss of consciousness. No new onset seizures. No new onset focal weakness. No gross hematochezia or melena. Denies gross hematuria or dysuria. No hematemesis. He did have the intermittent claudication symptoms prior to coming in. In particular, he had left foot pain. Denies polydipsia or polyuria. Denies heat or cold intolerance. Denies new onset focal weakness. No seizure disorder. No new lumps or rashes on his body. Complete 13-system review of systems obtained as best as I could. Pertinent positives and/or negatives as in body of history above, otherwise noncontributory. PHYSICAL EXAMINATION: VITAL SIGNS: At presentation, he was afebrile, temperature of 98.6, pulse 72, respiratory rate 16, blood pressure 117/82, oxygen sats were 95% at that time on room air. During my evaluation, he fluctuated anywhere from 90-99% on room air. GENERAL: A middle-aged, morbidly obese -[place] male. Normocephalic, atraumatic, talking to me in full sentences without significant respiratory distress. HEAD, EYES, EARS, NOSE AND THROAT: He is anicteric. No conjunctival erythema. Oropharynx is a moist, is a Mallampati #4 oropharynx. No gross jugular venous distention, no thyromegaly. He does have a large neck circumference. Grossly, no palpable lymph nodes in the supraclavicular or submandibular lymph node chains. LUNGS: Auscultation of both lung tang unremarkable. Distant breath sounds mostly due to the subcutaneous tissue, but clear. HEART: Heart sounds 1 and 2 are heard. They were regular in rate and rhythm at the time of my evaluation without rubs or murmurs. ABDOMEN: Soft, full, bowel sounds are positive, nontender. No palpable hepatosplenomegaly. EXTREMITIES: The right lower extremity is swollen with about 2+ edema, left lower extremity about 1+ edema. He has a weakly palpable pedal pulses. He has pretibial hair loss and discoloration. Otherwise, upper extremities are within normal limits. NEUROLOGIC: Pupils are equal, round, about 4 mm, reactive to light. Extraocular muscle movements are intact. He moves all 4 extremities spontaneously. The skin is of poor turgor in the lower extremities, in particular without overt cellulitis or rash. LABORATORY DATA: From my review are as follows: Admission white cell count is 4, 800 with a hemoglobin of 12.2, hematocrit of 36.2, platelet count 291. INR is 0.88. Fibrinogen 380. Serum sodium 140, potassium 4.8, chloride 103, bicarb 26, BUN 23, creatinine 1.2, glucose was 159. I do not have any microbiology studies. I do not have any radiographic studies for review. ASSESSMENT AND PLAN: 1. Acute limb ischemia, now on the EKOS catheter system. 2. Possible heparin-induced thrombocytopenia. 3. Morbid obesity. 4. Obstructive sleep apnea. 5. Diabetes. 6. Hypertension. 7. History of ulcer disease. PLAN: I have encouraged him to use bilevel positive air pressure ventilation therapy at bedtime, especially in light of his other comorbidities. I will put him empirically on BiPAP 16/8 with a backup rate of 10. Supplemental oxygen will be given as necessary for possible nocturnal desaturation, especially if he refuses BiPAP. We will continue p.r.n. analgesia. Serial hemoglobin and hematocrits will be done. Positive protocol during his thrombolytic therapy. He will be placed on GI prophylaxis, especially being on thrombolytic therapy. Weight loss has been encouraged. Flu and pneumonia vaccination will be addressed per protocol. Thank you very much for the consult. We will follow along. We will make further recommendations as the picture progresses/becomes clearer. JOB# [id number] ONESIMO/GILDA
[2018-12-02] MEDS: ELIQUIS PO SCH (22:50)
--- NOTE | 2018-12-03 02:26 | Consultation ---
REFERRING PHYSICIAN: Dick Juares MD REASON FOR CONSULTATION: Possible heparin-induced thrombocytosis. HISTORY OF PRESENT ILLNESS: I saw the patient, a 58-year-old male in the procedure room. The patient had come to the hospital for left lower extremity ischemic pain for which vascular procedure was planned. After the initial dye was placed into the left lower extremity during the same time, heparin was given and at the same time, it was noted that the patent vessels were becoming thrombotic with no flow. The patient has an IV access, which is being flushed with heparin. As this is clinically seen sometimes in heparin-induced thrombosis, I have been asked to evaluate the patient. The patient was started on bivalirudin, Angiomax. Antiplatelet agent and Eliquis is being looked into. At this time, left leg ischemia issues. No headache, no visual disturbances, no ear discharge, no chest pain, no palpitations, no abdominal pain, no vomiting, no diarrhea, no dysuria. Left leg pain issues. PAST MEDICAL HISTORY: Atherosclerosis, ulceration, gangrene. Other medical issues includes diabetes, hypertension. FAMILY HISTORY: Noncontributory. ALLERGIES: HEPARIN, a newly diagnosis. SOCIAL HISTORY: Lives with . PHYSICAL EXAMINATION: VITAL SIGNS: Temperature 98.8, pulse 80, respirations 18, BP 143/67. HEENT: Mild pallor, no icterus. NECK: No neck lymph nodes. HEART: S1, S2. LUNGS: Clear to auscultation. ABDOMEN: Soft. EXTREMITIES: Lower extremity, vascular procedure ongoing. ASSESSMENT AND PLAN: Based on clinical scenario, heparin-induced thrombocytosis. The patient has been given bivalirudin and later changed to Eliquis and antiplatelet agent. The patient will need hypercoagulable workup as an outpatient as getting the is challenging because of consent issues with some of the labs need. Diabetes. Hypertension. I will follow the patient during inpatient stay. JOB# [id number] ED/GILDA
[2018-12-03 06:22] LABS: BUN/Creatinine Ratio 19; Blood Urea Nitrogen 17 mg/dL (9-20); Calcium 8.8 mg/dL (8.4-10.2); Hemolysis Index 19
--- NOTE | 2018-12-03 07:17 | Progress Note ---
Assessment and Plan Severe PVD with acute limb ischemia s/p status post left lower extremity revascularization, EKOS and angioplasty. DM HIT Morbid Obesity, PASHA HTN PUD Plan Patient seen and examined resting comfortable, stable for discharge from medical stand point BIPAP at night Continue supplemental oxygen Weight loss and lifestyle modifications counselling Continue with glycemic control Encouraged to remain compliant with nocturnal BIPAP/CPAP Subjective Date of service: 12/03/18 Principal diagnosis: Atherosclerosis with gangrene/ulceration Interval history: Patient is seen today for: acute limb ischemia status post left lower extremity revascularization, EKOS and angioplasty. , PASHA on PAP, Morbid obsity Seen and examined at bedside; 24hour events reviewed; nursing and respiratory care staff consulted; no adverse overnight events reported to me; Patient did not want to use BIPAP overnight. He denies any chest pain, no shortness of breath, no fevers. No pain in the limbs. Objective - Exam Narrative Exam: General appearance: Present: no acute distress, well-nourished, obese - EENT Eyes: Present: PERRL, EOM intact ENT: clear oral mucosa, dentition normal - Neck Neck: Present: supple, normal ROM - Respiratory Respiratory effort: normal Respiratory: bilateral: CTA - Cardiovascular Rhythm: regular Heart Sounds: Present: S1 & S2, systolic murmur - Extremities Extremities: abnormal Extremity abnormal: edema (+1), pulses diminished Peripheral Pulses: within normal limits - Abdominal General gastrointestinal: Present: soft, non-tender, non-distended, normal bowel sounds - Integumentary Integumentary: Present: erythema, decreased turgor - Musculoskeletal Musculoskeletal: strength equal bilaterally - Psychiatric Psychiatric: appropriate mood/affect - Neurologic Neurologic: CNII-XII intact, moves all extremities - Allied Health Allied health notes reviewed: nursing Vital Signs - 12hr 12/02/18 12/02/18 12/02/18 20:00 20:10 21:00 Temperature 98.2 F Pulse Rate 80 83 80 Pulse Rate [ 87 Right Posterior Tibial] Respiratory 18 18 21 Rate Blood Pressure 128/49 128/49 142/64 O2 Sat by Pulse 97 99 98 Oximetry 12/02/18 12/02/18 12/02/18 22:00 23:00 23:17 Temperature 98.3 F Pulse Rate 76 82 Pulse Rate [ Right Posterior Tibial] Respiratory 20 12 Rate Blood Pressure 142/67 123/41 O2 Sat by Pulse 98 98 Oximetry 12/03/18 12/03/18 12/03/18 00:00 01:00 02:00 Temperature Pulse Rate 82 82 83 Pulse Rate [ 98 H Right Posterior Tibial] Respiratory 21 16 21 Rate Blood Pressure 135/69 128/66 142/78 O2 Sat by Pulse 98 98 98 Oximetry 12/03/18 12/03/18 12/03/18 03:00 03:38 04:00 Temperature 98.5 F Pulse Rate 98 H 74 Pulse Rate [ Right Posterior Tibial] Respiratory 20 17 Rate Blood Pressure 142/78 132/67 O2 Sat by Pulse 98 97 Oximetry 12/03/18 04:16 Temperature Pulse Rate Pulse Rate [ 97 H Right Posterior Tibial] Respiratory Rate Blood Pressure O2 Sat by Pulse Oximetry CBC and BMP: 12/02/18 09:28 12/03/18 05:29 ABG, PT/INR, D-dimer: PT/INR, D-dimer PT 15.9 Sec. (12.2-14.9) H 12/01/18 19:18 INR 1.19 (0.87-1.13) H 12/01/18 19:18 Abnormal lab findings: Abnormal Labs 12/01/18 12/01/18 12/01/18 09:25 09:25 17:02 Hgb Hct RDW 15.9 H Lymph % (Auto) Lymph # Seg Neutrophils % PT INR APTT Heparin Anti-Xa Level Carbon Dioxide BUN 23 H Glucose 159 H POC Glucose 168 H Calcium 12/01/18 12/01/18 12/01/18 19:18 19:18 19:18 Hgb Hct RDW Lymph % (Auto) Lymph # Seg Neutrophils % PT 15.9 H INR 1.19 H APTT 46.6 H Heparin Anti-Xa Level < 0.10 L Carbon Dioxide BUN Glucose 146 H POC Glucose Calcium 12/01/18 12/01/18 12/02/18 19:26 22:02 00:51 Hgb 11.4 L Hct 33.8 L RDW 15.6 H Lymph % (Auto) 10.8 L Lymph # 0.7 L Seg Neutrophils % 85.6 H PT INR APTT Heparin Anti-Xa Level Carbon Dioxide BUN Glucose POC Glucose 119 H 132 H Calcium 12/02/18 12/02/18 12/02/18 02:14 02:14 04:01 Hgb 10.8 L Hct 32.5 L RDW 15.7 H Lymph % (Auto) Lymph # Seg Neutrophils % 72.1 H PT INR APTT Heparin Anti-Xa Level < 0.10 L Carbon Dioxide 20 L BUN Glucose 129 H POC Glucose Calcium 8.2 L 12/02/18 12/02/18 12/02/18 09:00 09:28 09:28 Hgb Hct 35.4 L RDW 15.9 H Lymph % (Auto) 13.1 L Lymph # 0.8 L Seg Neutrophils % 80.9 H PT INR APTT Heparin Anti-Xa Level 0.22 L Carbon Dioxide BUN Glucose POC Glucose 174 H Calcium 12/02/18 12/02/18 12/02/18 12:14 19:16 22:00 Hgb Hct RDW Lymph % (Auto) Lymph # Seg Neutrophils % PT INR APTT Heparin Anti-Xa Level Carbon Dioxide BUN Glucose POC Glucose 130 H 153 H 132 H Calcium 12/03/18 05:29 Hgb Hct RDW Lymph % (Auto) Lymph # Seg Neutrophils % PT INR APTT Heparin Anti-Xa Level Carbon Dioxide BUN Glucose 156 H POC Glucose Calcium
[2018-12-03] MEDS: HumaLOG SUB-Q SCH ×3 (08:47→11:30)
[2018-12-03] MEDS: PEPCID PO SCH (10:00)
[2018-12-03] MEDS: NORVASC PO SCH (10:00)
[2018-12-03] MEDS: APRESOLINE PO SCH (10:00)
[2018-12-03] MEDS: ELIQUIS PO SCH (10:00)
--- NOTE | 2018-12-03 10:14 | Progress Note ---
Assessment and Plan Assessment and plan: Patient is a 58 year old male with Diabetes mellitus, left partial foot amputation, seveere PVD, PASHA, on home cpapa and ex tobacco use. Who presents to the hospital with left lower ext and critical limb ischemia reqiring revascularization and unfortunately became occluded during the procedure and per vascular was concerning for HIT. Pateint then underwent TPA thrombolysis and we are consulted for management of DM, HTN and morbid obesity. During the evaluation in the ICU the patient denies any chest pain nausea vomiting or diarrhea. Denies any complaints or breast. Reports that his diabetes is well managed. He Is Working on His Weight Loss. Severe PVD with acute limb ischemia DM HIT Morbid Obesity PASHA HTN PUD Plan Patient seen and examined resting comfortable stable for discharge from medical stand point BIPAP at night Continue supplemental oxygen Weight loss counselling Continue insulin and accu checks DVT/GI PROPPHY History Interval history: Patient seen and examined today, no new complaints. Hospitalist Physical - Physical exam Narrative exam: General appearance: Present: no acute distress, well-nourished, obese - EENT Eyes: Present: PERRL, EOM intact ENT: clear oral mucosa, dentition normal - Neck Neck: Present: supple, normal ROM - Respiratory Respiratory effort: normal Respiratory: bilateral: CTA - Cardiovascular Rhythm: regular Heart Sounds: Present: S1 & S2, systolic murmur - Extremities Extremities: abnormal Extremity abnormal: edema (+1), pulses diminished Peripheral Pulses: within normal limits - Abdominal General gastrointestinal: Present: soft, non-tender, non-distended, normal bowel sounds - Integumentary Integumentary: Present: erythema, decreased turgor - Musculoskeletal Musculoskeletal: strength equal bilaterally - Psychiatric Psychiatric: appropriate mood/affect - Neurologic Neurologic: CNII-XII intact, moves all extremities - Allied Health Allied health notes reviewed: nursing - Constitutional Vitals: Temp Pulse Resp BP Pulse Ox 98.2 F 74 12 120/57 98 12/03/18 07:33 12/03/18 09:01 12/03/18 09:01 12/03/18 09:01 12/03/18 09:01 General appearance: Present: no acute distress, well-nourished, obese Results - Labs CBC & Chem 7: 12/02/18 09:28 12/03/18 05:29 Labs: Laboratory Last Values WBC 5.8 K/mm3 (4.5-11.0) 12/02/18 09:28 RBC 3.99 M/mm3 (3.65-5.03) 12/02/18 09:28 Hgb 11.8 gm/dl (11.8-15.2) 12/02/18 09:28 Hct 35.4 % (35.5-45.6) L 12/02/18 09: MCV 89 fl (84-94) 12/02/18 09: MCH 30 pg (28-32) 12/02/18 09: MCHC 33 % (32-34) 12/02/18 09: RDW 15.9 % (13.2-15.2) H 12/02/18 09:28 Plt Count 258 K/mm3 (140-440) 12/02/18 09:28 Lymph % (Auto) 13.1 % (13.4-35.0) L 12/02/18 09: [place] % (Auto) 4.8 % (0.0-7.3) 12/02/18 09:28 Eos % (Auto) 0.3 % (0.0-4.3) 12/02/18 09: Baso % (Auto) 0.9 % (0.0-1.8) 12/02/18 09:28 Lymph # 0.8 K/mm3 (1.2-5.4) L 12/02/18 09:28 [place] # 0.3 K/mm3 (0.0-0.8) 12/02/18 09:28 Eos # 0.0 K/mm3 (0.0-0.4) 12/02/18 09:28 Baso # 0.1 K/mm3 (0.0-0.1) 12/02/18 09:28 Seg Neutrophils % 80.9 % (40.0-70.0) H 12/02/18 09:28 Seg Neutrophils # 4.7 K/mm3 (1.8-7.7) 12/02/18 09:28 PT 15.9 Sec. (12.2-14.9) H 12/01/18 19:18 INR 1.19 (0.87-1.13) H 12/01/18 19:18 APTT 46.6 Sec. (24.2-36.6) H 05/02/19 19:18 Fibrinogen 395 mg/dl (211-480) 12/02/18 09:28 Heparin Anti-Xa Level 0.22 U.I./ml (0.3-0.7) L 12/02/18 09:28 Sodium 139 mmol/L (137-145) 12/03/18 05:29 Potassium 4.2 mmol/L (3.6-5.0) 12/03/18 05:29 Chloride 103.0 mmol/L (98-107) 12/03/18 05:29 Carbon Dioxide 23 mmol/L (22-30) 12/03/18 05:29 Anion Gap 17 mmol/L 12/03/18 05:29 BUN 17 mg/dL (9-20) 12/03/18 05:29 Creatinine 0.9 mg/dL (0.8-1.5) 12/03/18 05:29 Estimated GFR > 60 ml/min 12/03/18 05:29 BUN/Creatinine Ratio 19 % 12/03/18 05:29 Glucose 156 mg/dL (75-100) H 12/03/18 05:29 POC Glucose 170 (70-105) H 12/03/18 08:39 Calcium 8.8 mg/dL (8.4-10.2) 12/03/18 05:29 Active Medications - Current Medications Current Medications: Generic Name Dose Route Start Last Admin Trade Name Freq PRN Reason Stop Dose Admin Acetaminophen/Hydrocodone Bitart 2 each 12/01/18 15:16 [place] 5/325 PO Q6H PRN Pain, Moderate (4-6) Amlodipine Besylate 10 mg 12/02/18 10:00 12/02/18 09:09 Norvasc PO 10 mg DAILY ENRICO Administration Apixaban 5 mg 12/02/18 22:00 12/02/18 22:50 Eliquis PO 5 mg BID ENRICO Administration Protocol Clopidogrel Bisulfate 75 mg 12/03/18 11:00 Plavix PO QDAY ENRICO Dextrose 50 ml 12/01/18 15:33 D50w (25gm) Syringe IV PRN PRN Hypoglycemia Famotidine 20 mg 12/02/18 11:00 12/02/18 22:51 Pepcid PO Not Given BID [facility] Hydralazine HCl 25 mg 12/02/18 10:00 12/02/18 09:09 Apresoline PO 25 mg DAILY ENRICO Administration Insulin Human Lispro 0 unit 12/01/18 16:30 12/03/18 08:48 Humalog SUB-Q 2 unit ACHS ENRICO Administration Protocol Insulin Human Lispro 10 unit 12/02/18 07:30 12/03/18 08:47 Humalog SUB-Q 10 unit AC ENRICO Administration Morphine Sulfate 2 mg 12/01/18 15:16 Morphine IV Q4H PRN Pain, Moderate (4-6) Morphine Sulfate 4 mg 12/01/18 15:16 Morphine IV Q4H PRN Pain , Severe (7-10) Ondansetron HCl 4 mg 12/01/18 15:16 Zofran IV Q8H PRN Nausea And Vomiting
[2018-12-03] MEDS ORDERED: PLAVIX PO SCH (11:00)
--- NOTE | 2018-12-03 14:20 | Progress Note ---
Assessment and Plan Patient is s/p LLE Revascularization with a well perfused foot. He thrombosed his repair from suspected HIT. He will require anticoagulation for at least 3 months with Eliquis and Plavix. He has been given samples and discount cards to assist with Eliquis. He will follow up in the office in [address] Juares. He expressed that he may have been started on a new anticoagulant by his primary care physician 2 weeks ago. We were unable to figure out what medication this may be. I have instructed him to call me when he gets home to verify this medication and whether or not he should continue taking it. He expressed understanding and agrees with the plan. Subjective Date of service: 12/03/18 Principal diagnosis: Atherosclerosis with gangrene/ulceration Interval history: POD #2 s/p initial revascularization and day 1 s/p thrombolysis. Patient without complaints. Objective - Constitutional Vitals: Vital Signs - 12hr 12/03/18 12/03/18 12/03/18 03:00 03:38 04:00 Temperature 98.5 F Pulse Rate 98 H 74 Pulse Rate [ Right Posterior Tibial] Respiratory 20 17 Rate Blood Pressure 142/78 132/67 O2 Sat by Pulse 98 97 Oximetry 12/03/18 12/03/18 12/03/18 04:16 05:00 06:00 Temperature Pulse Rate 78 Pulse Rate [ 97 H Right Posterior Tibial] Respiratory 18 17 Rate Blood Pressure 128/64 93/31 O2 Sat by Pulse 98 98 Oximetry 12/03/18 12/03/18 12/03/18 07:01 07:33 08:01 Temperature 98.2 F Pulse Rate 73 79 Pulse Rate [ Right Posterior Tibial] Respiratory 9 L 18 Rate Blood Pressure 123/49 120/57 O2 Sat by Pulse 97 99 Oximetry 12/03/18 12/03/18 12/03/18 09:01 10:00 10:01 Temperature Pulse Rate 74 89 89 Pulse Rate [ Right Posterior Tibial] Respiratory 12 15 Rate Blood Pressure 120/57 142/64 120/57 O2 Sat by Pulse 98 Oximetry 12/03/18 12/03/18 11:00 12:00 Temperature 98.6 F Pulse Rate Pulse Rate [ Right Posterior Tibial] Respiratory Rate Blood Pressure 120/57 O2 Sat by Pulse Oximetry General appearance: Present: no acute distress - Respiratory Respiratory effort: normal - Cardiovascular Rhythm: regular Extremities: normal temperature (warm left leg), abnormal (left foot dressing intact without drainage. Multiphasic doppler signal AT, peroneal, and monophaic PT) Extremity abnormal: edema (left lower extermity), other (right groin without hematoma) - Gastrointestinal General gastrointestinal: Present: soft, non-tender - Labs CBC & Chem 7: 12/02/18 09:28 12/03/18 05:29 Labs: Abnormal lab results 12/02/18 12/02/18 12/03/18 Range/Units 19:16 22:00 05:29 Glucose 156 H (75-100) mg/dL POC Glucose 153 H 132 H (70-105) 12/03/18 12/03/18 Range/Units 08:39 12:04 Glucose (75-100) mg/dL POC Glucose 170 H 129 H (70-105) Medications & Allergies - Medications Allergies/Adverse Reactions: Allergies heparin Adverse Reaction (Verified 12/02/18 07:47) Unknown Thrombosis (HIIT) Home Medications: Home Medications Medication Instructions Recorded Confirmed Last Taken Type Insulin Aspart [NovoLOG Flexpen] 100 unit SUB-Q TID 12/01/18 12/01/18 11/30/18 History amLODIPine [Norvasc] 10 mg PO DAILY 12/01/18 12/01/18 12/01/18 History 1 tab hydrALAZINE [Apresoline] 25 mg PO DAILY 12/01/18 12/01/18 12/01/18 History 1 tab Active Medications: Generic Name Dose Route Start Last Admin Trade Name Freq PRN Reason Stop Dose Admin Acetaminophen/Hydrocodone Bitart 2 each 12/01/18 15:16 [place] 5/325 PO Q6H PRN Pain, Moderate (4-6) Amlodipine Besylate 10 mg 12/02/18 10:00 12/03/18 10:00 Norvasc PO 10 mg DAILY ENRICO Administration Apixaban 5 mg 12/02/18 22:00 12/03/18 10:00 Eliquis PO 5 mg BID ENRICO Administration Protocol Clopidogrel Bisulfate 75 mg 12/03/18 11:00 12/03/18 11:10 Plavix PO 75 mg QDAY ENRICO Administration Dextrose 50 ml 12/01/18 15:33 D50w (25gm) Syringe IV PRN PRN Hypoglycemia Famotidine 20 mg 12/02/18 11:00 12/03/18 10:00 Pepcid PO 20 mg BID ENRICO Administration Hydralazine HCl 25 mg 12/02/18 10:00 12/03/18 10:00 Apresoline PO 25 mg DAILY ENRICO Administration Insulin Human Lispro 0 unit 12/01/18 16:30 12/03/18 08:48 Humalog SUB-Q 2 unit ACHS ENRICO Administration Protocol Insulin Human Lispro 10 unit 12/02/18 07:30 12/03/18 11:30 Humalog SUB-Q Not Given AC [facility] Morphine Sulfate 2 mg 12/01/18 15:16 Morphine IV Q4H PRN Pain, Moderate (4-6) Morphine Sulfate 4 mg 12/01/18 15:16 Morphine IV Q4H PRN Pain , Severe (7-10) Ondansetron HCl 4 mg 12/01/18 15:16 Zofran IV Q8H PRN Nausea And Vomiting
--- NOTE | 2018-12-03 14:35 | Discharge Summary ---
Providers - Providers Date of Admission: 12/01/18 15:24 Date of discharge: 12/03/18 Attending physician: MANUEL KARIMI 12/01/18 16:20 Consult to Physician [CONS] Routine Comment: Consulting Provider: NATI BRISENO Physician Instructions: Reason For Exam: medical management/dm management 12/01/18 16:21 Consult to Physician [CONS] Routine Comment: Consulting Provider: BEATRIZ COLEMAN Physician Instructions: Reason For Exam: ICU care Consult to Physician [CONS] Routine Comment: Consulting Provider: PADDY PHILLIPS Physician Instructions: Reason For Exam: possible HIT 12/02/18 11:59 Consult to Wound/ET Nurse [CONS] Routine Reason For Exam: wound eval Primary care physician: WING MONTERO Hospitalization Reason for admission: Peripheral vascular disease with critical limb ischemia Condition: Good Procedures: Date of procedure: 12/01/18 Pre-op diagnosis: Critical limb ischemia of the left lower extremity Post-op diagnosis: same Procedure: 1. Ultrasound guided access of the right common femoral artery 2. Angiography of the right lower extremity 3. Selection of the abdominal aorta with aortography 4. Selection of the left external iliac artery, common femoral artery, superficial femoral artery and popliteal artery with angiography 5. Selection of the left anterior tibial artery 6. Ultrasound guided access of the left dorsalis pedis 7. Angioplasty of the left anterior tibial artery with a 2 mm x 220 angioplasty balloon ; 2.5 mm x 120 mm Chocolate balloon ; 3 mm x 120 mm Chocolate balloon ; 2.5 mm x 220 angioplasty balloon 8. Stenting of the left proximal anterior tibial artery with a 2.75 mm x 38 mm RESOLUTE DUS with angioplasty of the left anterior tibial artery with a 2.5 mm x 220 mm angioplasty balloon 9. Placement of a 3 mm spider EPD in the left peroneal artery 10. Atherectomy of the left peroneal artery with a Hawkone S device with angioplasty with a 3 mm x 120 mm Chocolate balloon 11. Angioplasty of the left anterior tibial artery stent with a Expedia 3 mm x 15 mm coronary balloon and 2.5 mm x 220 mm angioplasty balloon 12. Infusion of 6 mg of tPA in the left peroneal artery and anterior tibial artery 13. Placement of a 50 cm x 135 cm EKOS thrombolytic device in the left anterior tibial artery Anesthesia: local (w/ conscious sedation) Surgeon: MANUEL KARIMI Estimated blood loss: minimal Condition: stable Disposition: ICU DATe of Procedure: 12/02/2018 Procedure: 1. EKOS catheter removal of the left superficial femoral artery 2. Angiography of the left lower extremity 3. Aspiration thrombectomy with 6 Fr EXPORT catheter of the left anterior tibial artery 4. Angioplasty of the left anterior tibial artery with a 2.5 mm x 150 mm angioplasty balloon 5. Selection of the peroneal artery 6. Injection of 2 mg of tPA in the distal left peroneal artery 7. Closure of the right common femoral artery with 6 Fr proglide Anesthesia: local (w/ conscious sedation) Surgeon: MANUEL KARIMI Estimated blood loss: minimal Condition: stable Disposition: ICU Disposition: DC-01 TO HOME OR SELFCARE Core Measure Documentation - Palliative Care Palliative Care/ Comfort Measures: Not Applicable - Core Measures Any of the following diagnoses?: none - VTE Discharge Requirements Deep Vein Thrombosis/Pulmonary Embolism Present on Admission: No Has pt received <5 days of overlap therapy or INR<2.0: No Anticoagulant overlap therapy prescribed at discharge: No Contraindication No Overlap Therapy order at DC: Not Indicated - Acute DC Discharge Requirements Aspirin at discharge: No Reason for no aspirin on DC: Medical contraindication Exam - Constitutional Vitals: Temp Pulse Resp BP Pulse Ox 98.6 F 89 15 120/57 98 12/03/18 12:00 12/03/18 10:01 12/03/18 10:01 12/03/18 11:00 12/03/18 09:01 General appearance: Present: no acute distress - Respiratory Respiratory effort: normal - Extremities Extremity abnormal: other (well perfused LLE) Plan Activity: other (No strenuous activity for 24 hours) Wound: other (okay to shower but do not soak in water for 24 hours) Special Instructions: other (per previous wound care orders) Follow up with: WING MONTERO MD [Primary Care Provider] - 7 Days MANUEL KARIMI MD [Staff Physician] - 14 Days Prescriptions: Apixaban [Eliquis] 5 mg PO BID #60 tablet Clopidogrel [Plavix] 75 mg PO QDAY #90 tablet
[2018-12-03 16:07] VITALS: BP 166/88
[2018-12-06 15:20] LABS: Heparin-Induced Platelet Antib Negative (Negative); Unfractionated Heparin Negative (Negative)
== END 2018-12-03 16:13 | disposition home or self-care (01) | DRG 271 ==
LOC: CATHLABREC 08:09 → CC1 15:24
PROVIDERS: ADMIT Radiology Diagnostic Radiology; ATTEND Radiology Diagnostic Radiology
PROC: 04CU3ZZ Extirpation of Matter from Left Peroneal Artery, Percutaneous Approach (ICD-10-PCS; principal; 2018-12-01)
PROC: 047Q34Z Dilation of Left Anterior Tibial Artery with Drug-eluting Intraluminal Device, Percutaneous Approach (ICD-10-PCS; 2018-12-01)
PROC: 047U3ZZ Dilation of Left Peroneal Artery, Percutaneous Approach (ICD-10-PCS; 2018-12-01)
PROC: 3E05317 Introduction of Other Thrombolytic into Peripheral Artery, Percutaneous Approach (ICD-10-PCS; 2018-12-01)
PROC: B41D1ZZ Fluoroscopy of Aorta and Bilateral Lower Extremity Arteries using Low Osmolar Contrast (ICD-10-PCS; 2018-12-01)
PROC: 04HQ33Z Insertion of Infusion Device into Left Anterior Tibial Artery, Percutaneous Approach (ICD-10-PCS; 2018-12-01)
PROC: 047Q3ZZ Dilation of Left Anterior Tibial Artery, Percutaneous Approach (ICD-10-PCS; 2018-12-02)
PROC: 04CQ3ZZ Extirpation of Matter from Left Anterior Tibial Artery, Percutaneous Approach (ICD-10-PCS; 2018-12-02)
PROC: B41G1ZZ Fluoroscopy of Left Lower Extremity Arteries using Low Osmolar Contrast (ICD-10-PCS; 2018-12-02)
PROC: 3E05317 Introduction of Other Thrombolytic into Peripheral Artery, Percutaneous Approach (ICD-10-PCS; 2018-12-02)
PROC: 04PYX3Z Removal of Infusion Device from Lower Artery, External Approach (ICD-10-PCS; 2018-12-02)
DX: E11.52 Type 2 diabetes mellitus with diabetic peripheral angiopathy with gangrene (principal); Z68.41 Body mass index [BMI] 40.0-44.9, adult; I74.3 Embolism and thrombosis of arteries of the lower extremities; I70.245 Atherosclerosis of native arteries of left leg with ulceration of other part of foot; G47.33 Obstructive sleep apnea (adult) (pediatric); E66.01 Morbid (severe) obesity due to excess calories; D75.82 Heparin induced thrombocytopenia (HIT); L97.529 Non-pressure chronic ulcer of other part of left foot with unspecified severity; I10 Essential (primary) hypertension; Z80.9 Family history of malignant neoplasm, unspecified; Z83.3 Family history of diabetes mellitus; Z82.49 Family history of ischemic heart disease and other diseases of the circulatory system; Z87.891 Personal history of nicotine dependence; Z88.8 Allergy status to other drugs, medicaments and biological substances; Z79.4 Long term (current) use of insulin; Z89.422 Acquired absence of other left toe(s); Z79.01 Long term (current) use of anticoagulants; Z87.11 Personal history of peptic ulcer disease
CPT/HCPCS: 36415; 37184; 37211; 37214; 37228; 37230; 37233; 75625; 75710; 75716; 76937; 80048; 82962; 85025; 85384; 85520; 85610; 85730; 86022; G0378; C1714; C1725; C1757; C1760; C1769; C1773; C1874; C1887; J0583; J0690; J1644; J1815; J2250; J2997; J3010; J7030; J7040; Q9967

== ENCOUNTER 2018-12-29 10:16 | Outpatient (CLI) | payer OTHER ==
[2018-12-29] MEDS ORDERED: SILVER NITRATE TP ONE (11:57)
[2018-12-29] MEDS ORDERED: XYLOCAINE TOPICAL 4% TP ONE (11:57)
== END 2018-12-29 10:17 | disposition home or self-care (01) ==
LOC: WOUND 10:16
PROVIDERS: ATTEND Surgery
DX: T87.89 Other complications of amputation stump (principal); E11.621 Type 2 diabetes mellitus with foot ulcer; L97.423 Non-pressure chronic ulcer of left heel and midfoot with necrosis of muscle; I10 Essential (primary) hypertension; Y83.5 Amputation of limb(s) as the cause of abnormal reaction of the patient, or of later complication, without mention of misadventure at the time of the procedure
CPT/HCPCS: 99205; G0463

== ENCOUNTER 2018-12-29 12:45 | Outpatient (CLI) | payer OTHER ==
--- NOTE | 2018-12-29 14:45 | XRay Report ---
ROUTINE CHEST, TWO VIEWS: HISTORY: Type 2 diabetes mellitus with foot ulcer, congestion. The trachea, heart, mediastinal contour, lung tang and bony thorax are unremarkable. IMPRESSION: Unremarkable chest x-ray.
== END 2018-12-29 12:46 | disposition home or self-care (01) ==
LOC: XRAY 12:45
PROVIDERS: ATTEND Surgery
DX: E11.621 Type 2 diabetes mellitus with foot ulcer (principal); L97.423 Non-pressure chronic ulcer of left heel and midfoot with necrosis of muscle; E11.40 Type 2 diabetes mellitus with diabetic neuropathy, unspecified; I10 Essential (primary) hypertension; E66.9 Obesity, unspecified
CPT/HCPCS: 71046

== ENCOUNTER 2019-01-09 12:03 | Outpatient (CLI) | payer OTHER | END 2019-01-09 12:04 | disposition home or self-care (01) | LOC: WOUND 12:03 | PROVIDERS: ATTEND Internal Medicine | DX: T87.89 Other complications of amputation stump (principal); E11.621 Type 2 diabetes mellitus with foot ulcer; L97.423 Non-pressure chronic ulcer of left heel and midfoot with necrosis of muscle; I10 Essential (primary) hypertension; Y83.5 Amputation of limb(s) as the cause of abnormal reaction of the patient, or of later complication, without mention of misadventure at the time of the procedure | CPT/HCPCS: 82962; G0463; 99183; 99215; G0277 ==

== ENCOUNTER 2019-01-12 11:53 | Outpatient (CLI) | payer OTHER | END 2019-01-12 11:54 | disposition home or self-care (01) | LOC: WOUND 11:53 | PROVIDERS: ATTEND Surgery | DX: E11.621 Type 2 diabetes mellitus with foot ulcer (principal); L97.423 Non-pressure chronic ulcer of left heel and midfoot with necrosis of muscle; E11.40 Type 2 diabetes mellitus with diabetic neuropathy, unspecified; I10 Essential (primary) hypertension; E66.9 Obesity, unspecified | CPT/HCPCS: 82962; G0277; 99183 ==

== ENCOUNTER 2019-01-19 11:38 | Outpatient (CLI) | payer OTHER | END 2019-01-19 11:39 | disposition home or self-care (01) | LOC: WOUND 11:38 | PROVIDERS: ATTEND Surgery | DX: E11.621 Type 2 diabetes mellitus with foot ulcer (principal); L97.423 Non-pressure chronic ulcer of left heel and midfoot with necrosis of muscle; E11.40 Type 2 diabetes mellitus with diabetic neuropathy, unspecified; I10 Essential (primary) hypertension; E66.9 Obesity, unspecified | CPT/HCPCS: 82962; G0277; 99183 ==

== ENCOUNTER 2019-01-20 12:31 | Outpatient (CLI) | payer OTHER | END 2019-01-20 12:32 | disposition home or self-care (01) | LOC: WOUND 12:31 | PROVIDERS: ATTEND Surgery | DX: T87.89 Other complications of amputation stump (principal); E11.621 Type 2 diabetes mellitus with foot ulcer; L97.423 Non-pressure chronic ulcer of left heel and midfoot with necrosis of muscle; E11.40 Type 2 diabetes mellitus with diabetic neuropathy, unspecified; E66.9 Obesity, unspecified; Z68.39 Body mass index [BMI] 39.0-39.9, adult; Y83.5 Amputation of limb(s) as the cause of abnormal reaction of the patient, or of later complication, without mention of misadventure at the time of the procedure | CPT/HCPCS: 82962; G0277; 99183 ==

== ENCOUNTER 2019-01-23 12:51 | Outpatient (CLI) | payer OTHER | END 2019-01-23 12:52 | disposition home or self-care (01) | LOC: WOUND 12:51 | PROVIDERS: ATTEND Surgery | DX: T87.89 Other complications of amputation stump (principal); E11.621 Type 2 diabetes mellitus with foot ulcer; L97.423 Non-pressure chronic ulcer of left heel and midfoot with necrosis of muscle; E11.40 Type 2 diabetes mellitus with diabetic neuropathy, unspecified; I10 Essential (primary) hypertension; E66.9 Obesity, unspecified; Z68.39 Body mass index [BMI] 39.0-39.9, adult; Y83.5 Amputation of limb(s) as the cause of abnormal reaction of the patient, or of later complication, without mention of misadventure at the time of the procedure | CPT/HCPCS: 82962; 99183; G0277 ==

== ENCOUNTER 2019-01-24 12:50 | Outpatient (CLI) | payer OTHER | END 2019-01-24 12:51 | disposition home or self-care (01) | LOC: WOUND 12:50 | PROVIDERS: ATTEND Surgery | DX: T87.89 Other complications of amputation stump (principal); E11.621 Type 2 diabetes mellitus with foot ulcer; L97.423 Non-pressure chronic ulcer of left heel and midfoot with necrosis of muscle; E11.40 Type 2 diabetes mellitus with diabetic neuropathy, unspecified; I10 Essential (primary) hypertension; E66.9 Obesity, unspecified; Z68.39 Body mass index [BMI] 39.0-39.9, adult; Y83.5 Amputation of limb(s) as the cause of abnormal reaction of the patient, or of later complication, without mention of misadventure at the time of the procedure | CPT/HCPCS: 82962; G0277; 99183 ==

== ENCOUNTER 2019-01-25 10:50 | Outpatient (CLI) | payer OTHER | END 2019-01-25 10:51 | disposition home or self-care (01) | LOC: WOUND 10:50 | PROVIDERS: ATTEND Surgery | DX: T87.89 Other complications of amputation stump (principal); E11.621 Type 2 diabetes mellitus with foot ulcer; L97.423 Non-pressure chronic ulcer of left heel and midfoot with necrosis of muscle; E11.40 Type 2 diabetes mellitus with diabetic neuropathy, unspecified; I10 Essential (primary) hypertension; E66.9 Obesity, unspecified; Z68.38 Body mass index [BMI] 38.0-38.9, adult; Y83.5 Amputation of limb(s) as the cause of abnormal reaction of the patient, or of later complication, without mention of misadventure at the time of the procedure | CPT/HCPCS: 82962; 99183; G0277 ==

== ENCOUNTER 2019-01-26 10:04 | Outpatient (CLI) | payer OTHER | END 2019-01-26 10:05 | disposition home or self-care (01) | LOC: WOUND 10:04 | PROVIDERS: ATTEND Surgery | DX: T87.89 Other complications of amputation stump (principal); E11.621 Type 2 diabetes mellitus with foot ulcer; L97.423 Non-pressure chronic ulcer of left heel and midfoot with necrosis of muscle; E11.40 Type 2 diabetes mellitus with diabetic neuropathy, unspecified; I10 Essential (primary) hypertension; E66.9 Obesity, unspecified; Z68.38 Body mass index [BMI] 38.0-38.9, adult; Y83.8 Other surgical procedures as the cause of abnormal reaction of the patient, or of later complication, without mention of misadventure at the time of the procedure | CPT/HCPCS: 82962; 99183; G0277 ==

== ENCOUNTER 2019-01-27 11:49 | Outpatient (CLI) | payer OTHER | END 2019-01-27 11:50 | disposition home or self-care (01) | LOC: WOUND 11:49 | PROVIDERS: ATTEND Surgery | DX: T87.89 Other complications of amputation stump (principal); E11.621 Type 2 diabetes mellitus with foot ulcer; L97.423 Non-pressure chronic ulcer of left heel and midfoot with necrosis of muscle; E11.40 Type 2 diabetes mellitus with diabetic neuropathy, unspecified; I10 Essential (primary) hypertension; Y83.5 Amputation of limb(s) as the cause of abnormal reaction of the patient, or of later complication, without mention of misadventure at the time of the procedure | CPT/HCPCS: 82962; 99183; G0277 ==

== ENCOUNTER 2019-02-06 12:48 | Outpatient (CLI) | payer OTHER | END 2019-02-06 12:49 | disposition home or self-care (01) | LOC: WOUND 12:48 | PROVIDERS: ATTEND Surgery | DX: T87.89 Other complications of amputation stump (principal); E11.621 Type 2 diabetes mellitus with foot ulcer; L97.423 Non-pressure chronic ulcer of left heel and midfoot with necrosis of muscle; I10 Essential (primary) hypertension; Y83.5 Amputation of limb(s) as the cause of abnormal reaction of the patient, or of later complication, without mention of misadventure at the time of the procedure | CPT/HCPCS: 82962; G0277; 99183 ==

== ENCOUNTER 2019-02-07 10:01 | Outpatient (CLI) | payer OTHER | END 2019-02-07 10:02 | disposition home or self-care (01) | LOC: WOUND 10:01 | PROVIDERS: ATTEND Surgery | DX: T87.89 Other complications of amputation stump (principal); E11.621 Type 2 diabetes mellitus with foot ulcer; L97.423 Non-pressure chronic ulcer of left heel and midfoot with necrosis of muscle; I10 Essential (primary) hypertension; Y83.5 Amputation of limb(s) as the cause of abnormal reaction of the patient, or of later complication, without mention of misadventure at the time of the procedure | CPT/HCPCS: 82962; 99183; G0277 ==

== ENCOUNTER 2019-02-08 10:00 | Outpatient (CLI) | payer OTHER | END 2019-02-08 10:01 | disposition home or self-care (01) | LOC: WOUND 10:00 | PROVIDERS: ATTEND Surgery | DX: T87.89 Other complications of amputation stump (principal); E11.621 Type 2 diabetes mellitus with foot ulcer; L97.423 Non-pressure chronic ulcer of left heel and midfoot with necrosis of muscle; I10 Essential (primary) hypertension; Y83.5 Amputation of limb(s) as the cause of abnormal reaction of the patient, or of later complication, without mention of misadventure at the time of the procedure | CPT/HCPCS: 82962; 99183; G0277 ==

== ENCOUNTER 2019-02-09 09:59 | Outpatient (CLI) | payer OTHER | END 2019-02-09 10:00 | disposition home or self-care (01) | LOC: WOUND 09:59 | PROVIDERS: ATTEND Surgery | DX: T87.89 Other complications of amputation stump (principal); E11.621 Type 2 diabetes mellitus with foot ulcer; L97.423 Non-pressure chronic ulcer of left heel and midfoot with necrosis of muscle; I10 Essential (primary) hypertension; Y83.5 Amputation of limb(s) as the cause of abnormal reaction of the patient, or of later complication, without mention of misadventure at the time of the procedure | CPT/HCPCS: 82962; 99183; G0277 ==

== ENCOUNTER 2019-02-10 10:10 | Outpatient (CLI) | payer OTHER | END 2019-02-10 10:11 | disposition home or self-care (01) | LOC: WOUND 10:10 | PROVIDERS: ATTEND Surgery | DX: T81.89XD Other complications of procedures, not elsewhere classified, subsequent encounter (principal); E11.621 Type 2 diabetes mellitus with foot ulcer; L97.523 Non-pressure chronic ulcer of other part of left foot with necrosis of muscle; I10 Essential (primary) hypertension; Y83.5 Amputation of limb(s) as the cause of abnormal reaction of the patient, or of later complication, without mention of misadventure at the time of the procedure | CPT/HCPCS: 82962; 99183; G0277 ==

== ENCOUNTER 2019-02-13 09:58 | Outpatient (CLI) | payer OTHER | END 2019-02-13 09:59 | disposition home or self-care (01) | LOC: WOUND 09:58 | PROVIDERS: ATTEND Surgery | DX: T81.89XD Other complications of procedures, not elsewhere classified, subsequent encounter (principal); E11.621 Type 2 diabetes mellitus with foot ulcer; L97.523 Non-pressure chronic ulcer of other part of left foot with necrosis of muscle; I10 Essential (primary) hypertension; Y83.5 Amputation of limb(s) as the cause of abnormal reaction of the patient, or of later complication, without mention of misadventure at the time of the procedure | CPT/HCPCS: 82962; G0277; 99183 ==

== ENCOUNTER 2019-02-14 07:50 | Outpatient (CLI) | payer OTHER | END 2019-02-14 07:51 | disposition home or self-care (01) | LOC: WOUND 07:50 | PROVIDERS: ATTEND Surgery | DX: T87.89 Other complications of amputation stump (principal); E11.621 Type 2 diabetes mellitus with foot ulcer; L97.423 Non-pressure chronic ulcer of left heel and midfoot with necrosis of muscle; I10 Essential (primary) hypertension; Y83.5 Amputation of limb(s) as the cause of abnormal reaction of the patient, or of later complication, without mention of misadventure at the time of the procedure | CPT/HCPCS: 82962; G0277; 99183 ==

== ENCOUNTER 2019-02-20 10:21 | Outpatient (CLI) | payer OTHER | END 2019-02-20 10:22 | disposition home or self-care (01) | LOC: WOUND 10:21 | PROVIDERS: ATTEND Surgery | DX: T87.89 Other complications of amputation stump (principal); E11.621 Type 2 diabetes mellitus with foot ulcer; L97.423 Non-pressure chronic ulcer of left heel and midfoot with necrosis of muscle; I10 Essential (primary) hypertension; Y83.5 Amputation of limb(s) as the cause of abnormal reaction of the patient, or of later complication, without mention of misadventure at the time of the procedure | CPT/HCPCS: 82962; G0277; 99183 ==

== ENCOUNTER 2019-02-21 10:05 | Outpatient (CLI) | payer OTHER | END 2019-02-21 10:06 | disposition home or self-care (01) | LOC: WOUND 10:05 | PROVIDERS: ATTEND Surgery | DX: T87.89 Other complications of amputation stump (principal); E11.621 Type 2 diabetes mellitus with foot ulcer; L97.423 Non-pressure chronic ulcer of left heel and midfoot with necrosis of muscle; I10 Essential (primary) hypertension; Y83.5 Amputation of limb(s) as the cause of abnormal reaction of the patient, or of later complication, without mention of misadventure at the time of the procedure | CPT/HCPCS: 82962; G0277; 99183 ==

== ENCOUNTER 2019-02-22 10:15 | Outpatient (CLI) | payer OTHER | END 2019-02-22 10:16 | disposition home or self-care (01) | LOC: WOUND 10:15 | PROVIDERS: ATTEND Surgery | DX: T87.89 Other complications of amputation stump (principal); E11.621 Type 2 diabetes mellitus with foot ulcer; L97.423 Non-pressure chronic ulcer of left heel and midfoot with necrosis of muscle; I10 Essential (primary) hypertension; Y83.5 Amputation of limb(s) as the cause of abnormal reaction of the patient, or of later complication, without mention of misadventure at the time of the procedure | CPT/HCPCS: 82962; G0277; 99183 ==

== ENCOUNTER 2019-02-23 10:08 | Outpatient (CLI) | payer OTHER | END 2019-02-23 10:09 | disposition home or self-care (01) | LOC: WOUND 10:08 | PROVIDERS: ATTEND Surgery | DX: T87.89 Other complications of amputation stump (principal); E11.621 Type 2 diabetes mellitus with foot ulcer; L97.423 Non-pressure chronic ulcer of left heel and midfoot with necrosis of muscle; I10 Essential (primary) hypertension; Y83.5 Amputation of limb(s) as the cause of abnormal reaction of the patient, or of later complication, without mention of misadventure at the time of the procedure | CPT/HCPCS: 82962; G0277; 99183 ==

== ENCOUNTER 2019-02-24 10:08 | Outpatient (CLI) | payer OTHER | END 2019-02-24 10:09 | disposition home or self-care (01) | LOC: WOUND 10:08 | PROVIDERS: ATTEND Surgery | DX: T87.89 Other complications of amputation stump (principal); E11.621 Type 2 diabetes mellitus with foot ulcer; L97.423 Non-pressure chronic ulcer of left heel and midfoot with necrosis of muscle; I10 Essential (primary) hypertension; Y83.5 Amputation of limb(s) as the cause of abnormal reaction of the patient, or of later complication, without mention of misadventure at the time of the procedure | CPT/HCPCS: 82962; G0277; 99183 ==

== ENCOUNTER 2019-02-27 09:59 | Outpatient (CLI) | payer OTHER | END 2019-02-27 10:00 | disposition home or self-care (01) | LOC: WOUND 09:59 | PROVIDERS: ATTEND Surgery | DX: T87.89 Other complications of amputation stump (principal); E11.621 Type 2 diabetes mellitus with foot ulcer; L97.423 Non-pressure chronic ulcer of left heel and midfoot with necrosis of muscle; I10 Essential (primary) hypertension; Y83.5 Amputation of limb(s) as the cause of abnormal reaction of the patient, or of later complication, without mention of misadventure at the time of the procedure | CPT/HCPCS: 82962; G0277; 99183 ==

== ENCOUNTER 2019-02-28 10:39 | Outpatient (CLI) | payer OTHER | END 2019-02-28 10:40 | disposition home or self-care (01) | LOC: WOUND 10:39 | PROVIDERS: ATTEND Surgery | DX: T87.89 Other complications of amputation stump (principal); E11.621 Type 2 diabetes mellitus with foot ulcer; L97.423 Non-pressure chronic ulcer of left heel and midfoot with necrosis of muscle; I10 Essential (primary) hypertension; Y83.5 Amputation of limb(s) as the cause of abnormal reaction of the patient, or of later complication, without mention of misadventure at the time of the procedure | CPT/HCPCS: 82962; G0277; 99183 ==

== ENCOUNTER 2019-03-01 09:53 | Outpatient (CLI) | payer OTHER | END 2019-03-01 09:54 | disposition home or self-care (01) | LOC: WOUND 09:53 | PROVIDERS: ATTEND Surgery | DX: T87.89 Other complications of amputation stump (principal); E11.621 Type 2 diabetes mellitus with foot ulcer; L97.423 Non-pressure chronic ulcer of left heel and midfoot with necrosis of muscle; I10 Essential (primary) hypertension; Y83.5 Amputation of limb(s) as the cause of abnormal reaction of the patient, or of later complication, without mention of misadventure at the time of the procedure | CPT/HCPCS: 82962; G0277; 99183 ==

== ENCOUNTER 2019-03-03 10:01 | Outpatient (CLI) | payer OTHER | END 2019-03-03 10:02 | disposition home or self-care (01) | LOC: WOUND 10:01 | PROVIDERS: ATTEND Surgery | DX: T87.89 Other complications of amputation stump (principal); E11.621 Type 2 diabetes mellitus with foot ulcer; L97.423 Non-pressure chronic ulcer of left heel and midfoot with necrosis of muscle; I10 Essential (primary) hypertension; Y83.5 Amputation of limb(s) as the cause of abnormal reaction of the patient, or of later complication, without mention of misadventure at the time of the procedure | CPT/HCPCS: 82962; 99183; G0277 ==

== ENCOUNTER 2019-03-06 12:15 | Outpatient (CLI) | payer OTHER | END 2019-03-06 12:16 | disposition home or self-care (01) | LOC: WOUND 12:15 | PROVIDERS: ATTEND Surgery | DX: T87.89 Other complications of amputation stump (principal); E11.621 Type 2 diabetes mellitus with foot ulcer; L97.423 Non-pressure chronic ulcer of left heel and midfoot with necrosis of muscle; I10 Essential (primary) hypertension; Y83.5 Amputation of limb(s) as the cause of abnormal reaction of the patient, or of later complication, without mention of misadventure at the time of the procedure | CPT/HCPCS: 82962; 99183; G0277 ==

== ENCOUNTER 2019-03-07 12:08 | Outpatient (CLI) | payer OTHER | END 2019-03-07 12:09 | disposition home or self-care (01) | LOC: WOUND 12:08 | PROVIDERS: ATTEND Surgery | DX: T87.89 Other complications of amputation stump (principal); E11.621 Type 2 diabetes mellitus with foot ulcer; L97.423 Non-pressure chronic ulcer of left heel and midfoot with necrosis of muscle; I10 Essential (primary) hypertension; Y83.5 Amputation of limb(s) as the cause of abnormal reaction of the patient, or of later complication, without mention of misadventure at the time of the procedure | CPT/HCPCS: 82962; 99183; G0277 ==

== ENCOUNTER 2019-03-08 12:17 | Outpatient (CLI) | payer OTHER | END 2019-03-08 12:18 | disposition home or self-care (01) | LOC: WOUND 12:17 | PROVIDERS: ATTEND Surgery | DX: T87.89 Other complications of amputation stump (principal); E11.621 Type 2 diabetes mellitus with foot ulcer; L97.423 Non-pressure chronic ulcer of left heel and midfoot with necrosis of muscle; I10 Essential (primary) hypertension; Y83.5 Amputation of limb(s) as the cause of abnormal reaction of the patient, or of later complication, without mention of misadventure at the time of the procedure | CPT/HCPCS: 82962; G0277; 99183 ==

== ENCOUNTER 2019-03-10 12:14 | Outpatient (CLI) | payer OTHER | END 2019-03-10 12:15 | disposition home or self-care (01) | LOC: WOUND 12:14 | PROVIDERS: ATTEND Surgery | DX: T87.89 Other complications of amputation stump (principal); E11.621 Type 2 diabetes mellitus with foot ulcer; L97.523 Non-pressure chronic ulcer of other part of left foot with necrosis of muscle; I10 Essential (primary) hypertension; Y83.5 Amputation of limb(s) as the cause of abnormal reaction of the patient, or of later complication, without mention of misadventure at the time of the procedure | CPT/HCPCS: 82962; G0277; 99183 ==

== ENCOUNTER 2019-03-13 12:46 | Outpatient (CLI) | payer OTHER | END 2019-03-13 12:47 | disposition home or self-care (01) | LOC: WOUND 12:46 | PROVIDERS: ATTEND Surgery | DX: T87.89 Other complications of amputation stump (principal); E11.621 Type 2 diabetes mellitus with foot ulcer; L97.523 Non-pressure chronic ulcer of other part of left foot with necrosis of muscle; I10 Essential (primary) hypertension; Y83.5 Amputation of limb(s) as the cause of abnormal reaction of the patient, or of later complication, without mention of misadventure at the time of the procedure | CPT/HCPCS: 82962; G0277; 99183 ==

== ENCOUNTER 2019-03-15 12:28 | Outpatient (CLI) | payer OTHER | END 2019-03-15 12:29 | disposition home or self-care (01) | LOC: WOUND 12:28 | PROVIDERS: ATTEND Surgery | DX: T87.89 Other complications of amputation stump (principal); E11.621 Type 2 diabetes mellitus with foot ulcer; L97.423 Non-pressure chronic ulcer of left heel and midfoot with necrosis of muscle; I10 Essential (primary) hypertension; Y83.5 Amputation of limb(s) as the cause of abnormal reaction of the patient, or of later complication, without mention of misadventure at the time of the procedure | CPT/HCPCS: 82962; G0277; 99183 ==

== ENCOUNTER 2019-03-16 11:54 | Outpatient (CLI) | payer OTHER | END 2019-03-16 11:55 | disposition home or self-care (01) | LOC: WOUND 11:54 | PROVIDERS: ATTEND Surgery | DX: T87.89 Other complications of amputation stump (principal); E11.621 Type 2 diabetes mellitus with foot ulcer; L97.423 Non-pressure chronic ulcer of left heel and midfoot with necrosis of muscle; I10 Essential (primary) hypertension; Y83.5 Amputation of limb(s) as the cause of abnormal reaction of the patient, or of later complication, without mention of misadventure at the time of the procedure | CPT/HCPCS: 82962; G0277; 99183 ==

== ENCOUNTER 2019-03-17 12:18 | Outpatient (CLI) | payer OTHER | END 2019-03-17 12:19 | disposition home or self-care (01) | LOC: WOUND 12:18 | PROVIDERS: ATTEND Surgery | DX: T87.89 Other complications of amputation stump (principal); E11.621 Type 2 diabetes mellitus with foot ulcer; L97.423 Non-pressure chronic ulcer of left heel and midfoot with necrosis of muscle; I10 Essential (primary) hypertension; Y83.5 Amputation of limb(s) as the cause of abnormal reaction of the patient, or of later complication, without mention of misadventure at the time of the procedure | CPT/HCPCS: 82962; G0277; 99183 ==

== ENCOUNTER 2019-03-20 14:13 | Outpatient (CLI) | payer OTHER | END 2019-03-20 14:14 | disposition home or self-care (01) | LOC: WOUND 14:13 | PROVIDERS: ATTEND Surgery | DX: T87.89 Other complications of amputation stump (principal); E11.621 Type 2 diabetes mellitus with foot ulcer; L97.423 Non-pressure chronic ulcer of left heel and midfoot with necrosis of muscle; I10 Essential (primary) hypertension; Y83.5 Amputation of limb(s) as the cause of abnormal reaction of the patient, or of later complication, without mention of misadventure at the time of the procedure | CPT/HCPCS: 82962; G0277; 99183 ==

== ENCOUNTER 2019-03-21 12:56 | Outpatient (CLI) | payer OTHER | END 2019-03-21 12:57 | disposition home or self-care (01) | LOC: WOUND 12:56 | PROVIDERS: ATTEND Surgery | DX: T87.89 Other complications of amputation stump (principal); E11.621 Type 2 diabetes mellitus with foot ulcer; L97.423 Non-pressure chronic ulcer of left heel and midfoot with necrosis of muscle; I10 Essential (primary) hypertension; Y83.5 Amputation of limb(s) as the cause of abnormal reaction of the patient, or of later complication, without mention of misadventure at the time of the procedure | CPT/HCPCS: 82962; G0277; 99183 ==

== ENCOUNTER 2019-03-22 14:08 | Outpatient (CLI) | payer OTHER | END 2019-03-22 14:09 | disposition home or self-care (01) | LOC: WOUND 14:08 | PROVIDERS: ATTEND Surgery | DX: T87.89 Other complications of amputation stump (principal); E11.621 Type 2 diabetes mellitus with foot ulcer; L97.423 Non-pressure chronic ulcer of left heel and midfoot with necrosis of muscle; I10 Essential (primary) hypertension; Y83.5 Amputation of limb(s) as the cause of abnormal reaction of the patient, or of later complication, without mention of misadventure at the time of the procedure | CPT/HCPCS: 82962; G0277; 99183 ==

== ENCOUNTER 2019-03-23 12:10 | Outpatient (CLI) | payer OTHER | END 2019-03-23 12:11 | disposition home or self-care (01) | LOC: WOUND 12:10 | PROVIDERS: ATTEND Surgery | DX: T87.89 Other complications of amputation stump (principal); E11.621 Type 2 diabetes mellitus with foot ulcer; L97.423 Non-pressure chronic ulcer of left heel and midfoot with necrosis of muscle; I10 Essential (primary) hypertension; Y83.5 Amputation of limb(s) as the cause of abnormal reaction of the patient, or of later complication, without mention of misadventure at the time of the procedure | CPT/HCPCS: 82962; G0277; 99183 ==

== ENCOUNTER 2019-04-10 13:15 | Outpatient (CLI) | payer OTHER | END 2019-04-10 13:16 | disposition home or self-care (01) | LOC: WOUND 13:15 | PROVIDERS: ATTEND Surgery | DX: T87.89 Other complications of amputation stump (principal); E11.621 Type 2 diabetes mellitus with foot ulcer; L97.423 Non-pressure chronic ulcer of left heel and midfoot with necrosis of muscle; I10 Essential (primary) hypertension; Y83.5 Amputation of limb(s) as the cause of abnormal reaction of the patient, or of later complication, without mention of misadventure at the time of the procedure | CPT/HCPCS: 82962; 99183; G0277 ==

== ENCOUNTER 2019-04-11 12:12 | Outpatient (CLI) | payer OTHER | END 2019-04-11 12:13 | disposition home or self-care (01) | LOC: WOUND 12:12 | PROVIDERS: ATTEND Surgery | DX: T87.89 Other complications of amputation stump (principal); E11.621 Type 2 diabetes mellitus with foot ulcer; L97.423 Non-pressure chronic ulcer of left heel and midfoot with necrosis of muscle; I10 Essential (primary) hypertension; Y83.5 Amputation of limb(s) as the cause of abnormal reaction of the patient, or of later complication, without mention of misadventure at the time of the procedure | CPT/HCPCS: 82962; 99183; G0277 ==

== ENCOUNTER 2019-04-13 11:58 | Outpatient (CLI) | payer OTHER | END 2019-04-13 11:59 | disposition home or self-care (01) | LOC: WOUND 11:58 | PROVIDERS: ATTEND Surgery | DX: T87.89 Other complications of amputation stump (principal); E11.621 Type 2 diabetes mellitus with foot ulcer; L97.423 Non-pressure chronic ulcer of left heel and midfoot with necrosis of muscle; I10 Essential (primary) hypertension; Y83.5 Amputation of limb(s) as the cause of abnormal reaction of the patient, or of later complication, without mention of misadventure at the time of the procedure | CPT/HCPCS: 82962; 99183; G0277 ==